=== PATIENT | female | born 1955 | race Caucasian/White ===

== ENCOUNTER 2021-03-26 21:39 | Inpatient (IN) | payer MEDICARE, BC ==
[~2021-03-26] VITALS: Ht 165.1 cm; Wt 53.5 kg
[2021-03-26] MEDS ORDERED: LORAZEPAM 2 MG/1 ML VIAL IM ONE (21:45)
[2021-03-26] MEDS ORDERED: LORAZEPAM 2 MG/1 ML VIAL ONE (21:56)
--- NOTE | 2021-03-26 22:00 | NUR ---
Pt bib [facility] ambulance for medical clearnace. Pt A/O x2, clear speech, no SOB or labored breathing. Afebrile. Educated on safety precautions, bed in lowest position. Dr. Garnica at bedside MSE in progress.
[2021-03-26 22:17] LABS: HEMATOCRIT 34.1 % (31.2-41.9); MEAN CORPUSCULAR HEMOGLOBIN 30.2 uug (24.7-32.8); PLATELET COUNT (AUTO) 258 K/uL (179-408)
[2021-03-26] MEDS ORDERED: CEFT1VIA14 IVP (22:18)
[2021-03-26] MEDS ORDERED: VANC750P15 IV (22:18)
[2021-03-26] MEDS ORDERED: BISA10SU12 RC (22:18)
[2021-03-26] MEDS ORDERED: HEPA500034 SUBCUT (22:18)
[2021-03-26] MEDS ORDERED: ACET-73 PO (22:18)
[2021-03-26] MEDS ORDERED: POLY17PO4 PO (22:18)
[2021-03-26] MEDS ORDERED: ASPI81TA31 PO (22:18)
[2021-03-26] MEDS ORDERED: SENN-18 PO (22:18)
[2021-03-26] MEDS ORDERED: LISI-657 PO (22:18)
[2021-03-26] MEDS ORDERED: MAGN400O6 PO (22:18)
[2021-03-26] MEDS ORDERED: AMLO-212 PO (22:18)
[2021-03-26] MEDS ORDERED: TRAM50TA2 PO (22:18)
[2021-03-26] MEDS ORDERED: ATOR80TA PO (22:18)
[2021-03-26] MEDS ORDERED: DOCU100C36 PO (22:18)
[2021-03-26] MEDS ORDERED: OLAN5TAB6 PO (22:18)
[2021-03-26] MEDS ORDERED: OXYC15TA46 PO (22:18)
[2021-03-26] MEDS ORDERED: HYDR-894 PO (22:18)
[2021-03-26 22:25] LABS: ETHANOL < 3 MG/DL (0-0)
[2021-03-26 22:28] LABS: CARBON DIOXIDE 28 mmol/L (21-32); CHLORIDE 102 mmol/L (98-107); GLUCOSE 110 mg/dL (74-106); POTASSIUM 4.6 mmol/L (3.5-5.1); UREA NITROGEN, BLOOD 20 mg/dL (7-18)
[2021-03-26] MEDS ORDERED: MELA3TAB41 PO (22:30)
[2021-03-26] MEDS ORDERED: TRAZ-182 PO (22:30)
[2021-03-26] MEDS ORDERED: DIPH25CA83 PO (22:30)
[2021-03-26] MEDS ORDERED: FAMO-132 PO (22:30)
[2021-03-26 22:33] LABS: ALANINE AMINOTRANSFERASE 17 U/L (14-59); ALKALINE PHOSPHATASE 86 U/L (50-136); ASPARTATE AMINOTRANSFERASE 16 U/L (15-37); BILIRUBIN,DIRECT 0.1 mg/dL (0.0-0.2); BILIRUBIN,TOTAL 0.4 mg/dL (0.2-1.0); THYROID STIMULATING HORMONE 2.879 mIU/mL (0.358-3.740); TOTAL PROTEIN, SERUM 6.5 g/dL (6.4-8.2)
--- NOTE | 2021-03-27 00:14 | NUR ---
Gave report to Cy roca
[2021-03-27] MEDS ORDERED: ACETAMINOPHEN 325 MG TABLET PO PRN (00:45)
[2021-03-27] MEDS ORDERED: MAG HYDROX/AL HYDROX/SIMETH 30 ML LIQUID UDC PO PRN (00:45)
--- NOTE | 2021-03-27 00:52 | NUR ---
Pt. admitted to MHU , under care of and Arnol Marion Dx: schizophrenia 5150 hold Belongs List completed
[2021-03-27 01:01] VITALS: BP 156/79
--- NOTE | 2021-03-27 01:45 | NUR ---
GPS: Admitted to unit earlier a 65 yr.old female under the care and supervision of /ÁLVARO Marion. Pt.is on a 72 hour hold for GD. Pt.is partially oriented,unable to say why she's in the hosp.right now. Anxious,disorganized,depressed and uncooperative during admission process. Refused a thorough skin assessment/body check from staff nurse when asked despite explanation of importance. Pt's rights handbook and advisement given to pt. Unit rules explained. Safe environment provided. Personal belongings list completed.Re-assured and re-directed. Denies wanting to hurt self. Will continue to monitor.
--- NOTE | 2021-03-27 05:46 | NUR ---
The [facility] production sanitizer Arnol Pearson was notified of this patients admission in order to reconcile their medications. No orders received and underwriter mortgage loan was told " It can be done in the morning ".
[2021-03-27] MEDS ORDERED: hydrALAZINE HCL 25 MG TABLET PO PRN (06:00)
[2021-03-27] MEDS ORDERED: FAMOTIDINE 20 MG TABLET PO PRN (06:00)
[2021-03-27 07:30] VITALS: BP 153/64
--- NOTE | 2021-03-27 07:30 | NUR ---
Received report from VINCENT Benoit. All questions, comments, and concerns were addressed. Received patient ambulating in the hallway, and standing at the nurses station.
[2021-03-27] MEDS: AMLODIPINE 5 MG TABLET PO SCH (08:11)
[2021-03-27] MEDS: ASPIRIN 81 MG TAB.CHEW PO SCH (08:11)
[2021-03-27] MEDS: LISINOPRIL 10 MG TABLET PO SCH (08:11)
--- NOTE | 2021-03-27 08:33 | NUR ---
Firearms Report: Maintenance Aide completed and submitted a [employer] firearms report for 5150 grave disability certification. A copy of report has been placed in patient chart.
[2021-03-27] MEDS ORDERED: OLANZAPINE 10 MG VIAL IM ONE (08:45)
--- NOTE | 2021-03-27 09:43 | NUR ---
WOUND CARE CONSULT: PT REFUSED TO ALLOW SKIN ASSESSMENT. PER NURSING REPORT AND PT HISTORY, PT HAS WOUND/CELLULITIS TO RT ANKLE AREA, PRESENT ON ADMISSION. PT ALSO REFUSED TO HAVE WOUND PHOTOS TAKEN PER RN. RECOMMEND DPM CONSULT. DR JOHNSON NOTIFIED OF CONSULT REQUEST. PT IS AMBULATORY. MD IN AGREEMENT WITH PLAN OF CARE.
[2021-03-27] MEDS: OLANZAPINE 2.5 MG TABLET PO SCH ×2 (10:00→17:00)
--- NOTE | 2021-03-27 10:25 | NUR ---
LEONELA Initial Discharge Plan: Patient currently resides at [address] [place] [address], [id number]. Patient will require alternate SNF placement upon discharge. SW will seek alternate SNF placement for the patient. SW will continue to work with patient, family, and MD to ensure a safe and proper discharge plan.
[2021-03-27] MEDS: DIVALPROEX SPRINKLE 125 MG CAP.SPRINK PO SCH ×2 (13:00→17:00)
--- NOTE | 2021-03-27 13:13 | NUR ---
Patient is alert and oriented. She is highly anxious, restless, needy, intrusive with staff, and has poor boundaries. Patient is noncomplicant with treatment plan, refusing scheduled PO medications and Addendum: 03/27/21 at 1318 by JOHANNA STOUT RN refusing for RN to assess wound on right lower extremity which was present upon admission. Patient denies SI/HI, denies AH/VH. Patient requires multiple attempts at redirection and reality orientation. She requires education about impulse control and how to communicate her needs appropriately to staff. Patient is able to ambulate independently and perform self care and ADL's. She is encouraged to participate in the unit therapeutic milieu.
--- NOTE | 2021-03-27 13:18 | NUR ---
Dr. Franklin consulted for wound on lower extremity. This lyric writer accompanied MD on assessment. Patient noted with redness on anterior and posterior lower extremity, a healing wound on the outer right portion of the leg. Wound is covered with Medihoney patch and mepilex dressing. This lyric writer will provide wound care as ordered by MD. Patient is continuing to refuse photo to be taken of leg. Patient provided with education about importance of wound management to prevent infection.
--- NOTE | 2021-03-27 14:29 | NUR ---
SW Collateral Contact: SW contacted patient's next of kin social media developer Shamika Coon ([phone]) to collected collateral information and left a voicemail for a return call.
--- NOTE | 2021-03-27 14:31 | NUR ---
LEONELA APS Contact: Per patient's records, LEONELA called APS credit reporter, Miles Lulú ([phone]) to collect collateral information. left a voicemail for a return call. Addendum: 03/27/21 at 1435 by KANG CISNEROS LEONELA received a call back from Miles who stated that the case is currently closed and recommended to make a new APS report.
--- NOTE | 2021-03-27 14:43 | NUR ---
LEONELA APS Report: LEONELA submitted an Adult Protective Services Report. Your report (Intake ID [id number]) was successfully submitted on 03/27/2021 at 2:43 PM. A copy of the report has been placed in the patient's chart.
[2021-03-27 16:00] VITALS: BP 114/63
--- NOTE | 2021-03-27 16:53 | NUR ---
Patient has been refusing all PO medication prescribed by psychiatrist. Patient states that she does not need medication, that she needs to be discharged to go back home, and has no insight into the reason for admission to the MHU. Patient provided with reality orientation multiple times. Patient provided with education about importance of medication adherence but she is refusing to participate in education and continues to ask to be discharged.
[2021-03-27] MEDS: CEphaleXIN 500 MG CAPSULE PO SCH (20:01)
[2021-03-27] MEDS: ATORVASTATIN 40 MG TABLET PO SCH (20:01)
[2021-03-27 20:11] VITALS: BP 122/54
[2021-03-28 07:30] VITALS: BP 142/61
[2021-03-28] MEDS: DIVALPROEX SPRINKLE 125 MG CAP.SPRINK PO SCH ×3 (09:00→16:54)
[2021-03-28] MEDS: OLANZAPINE 2.5 MG TABLET PO SCH ×2 (09:00→16:54)
[2021-03-28] MEDS: LISINOPRIL 10 MG TABLET PO SCH (09:00)
[2021-03-28] MEDS: AMLODIPINE 5 MG TABLET PO SCH (09:00)
[2021-03-28] MEDS: ASPIRIN 81 MG TAB.CHEW PO SCH (09:09)
[2021-03-28] MEDS: CEphaleXIN 500 MG CAPSULE PO SCH ×2 (09:10→22:02)
[2021-03-28] MEDS: THERAHONEY GEL 1.5 OZ TUBE TOP SCH (11:09)
[2021-03-28] MEDS: SODIUM HYPOCHLORITE 0.125% (QUARTER STRENGTH) 473 ML BOTTLE TP SCH (11:09)
--- NOTE | 2021-03-28 15:31 | NUR ---
SNF Referral: This SW sent Regi Patel from [facility] ([phone]) for placement option. This SW faxed patient's H & P, progress notes, and medication list.
--- NOTE | 2021-03-28 15:32 | NUR ---
Gps/Is Manager- Quiet, noted pacing around inside her room, offered prn med, claimed she is ok, does not need any medications. Encouraged to attend her group tx.
[2021-03-28 16:00] VITALS: BP 120/54
--- NOTE | 2021-03-28 16:26 | NUR ---
Gps/In Flight Refueling Craftsman- Pacing around this pm, anxious, r/t patient moved to another room , worried about sharing bathroom with few patients. Patient also verbalized worried abount the result of blood test that was drawn this am, informed pt. had A1C of 5.8 , (only blood test done this am ) offered to take anxiety pill refused.. Continue to monitor behavior
--- NOTE | 2021-03-28 16:32 | NUR ---
Gps/Receiving Operator- Intrusive, constantly needing redirections , constantly kept coming in to the Nurses station, demanding the need to have a toilet sit cover, , hesitant to share bathroom with other patient.. Continue to offere prn med. for anxiety remains to refused.
[2021-03-28 20:15] VITALS: BP 136/62
--- NOTE | 2021-03-28 20:30 | NUR ---
PATIENT IN BED ASLEEP BUT AROUSABLE. PATIENT KEPT TO HERSELF. PATIENT NON COMPLIANT WITH MEDICATIONS, TOOK ONLY KEFLEX ABX, TOOK LOTS OF ENCOURAGEMENT BEFORE TAKING HER MEDICATIONS, DENIES PAIN AT THIS TIME, CONT TO MONITOR.
[2021-03-28] MEDS: ATORVASTATIN 40 MG TABLET PO SCH (22:00)
--- NOTE | 2021-03-29 05:22 | NUR ---
PATIENT AWAKE KEEP COMING TO THE NURSING STATION, REFUSED TO SHARE HER TOILET TO OTHER PATIENT, PATIENT DOESNT HER ROOM, KEPT ASKING WHY THEY MOVED HER TO DIFFERENT ROOM. PATIENT UN REDIRECTABLE, INTRUSIVE, NEEDY. CONTINUE TO OFFER PO MEDICATIONS FOR ANXIETY BUT REFUSED. CONT TO MONITOR.
[2021-03-29 07:30] VITALS: BP 120/64
[2021-03-29] MEDS: AMLODIPINE 5 MG TABLET PO SCH (08:50)
[2021-03-29] MEDS: CEphaleXIN 500 MG CAPSULE PO SCH ×2 (08:50→20:59)
[2021-03-29] MEDS: DIVALPROEX SPRINKLE 125 MG CAP.SPRINK PO SCH ×3 (08:50→16:53)
[2021-03-29] MEDS: LISINOPRIL 10 MG TABLET PO SCH (08:50)
[2021-03-29] MEDS: ASPIRIN 81 MG TAB.CHEW PO SCH (08:50)
[2021-03-29] MEDS: OLANZAPINE 2.5 MG TABLET PO SCH ×2 (08:51→16:54)
--- NOTE | 2021-03-29 10:15 | NUR ---
Gps/Six Sigma Project Manager- Wound care to right ankle done as ordered, cleansed with dakins solution, pat dry, therahoney applied to open area, covered with mepilex(foam) , secured with paper tapes. .
--- NOTE | 2021-03-29 10:30 | NUR ---
Gps/Bookstore Manager -Patient extremely anxious, kept coming to the Nurses station, telling staff , she does not know what to do, figity, claimed she refused all medications because she can not drive, anymore, and no one will help her buy her medicines.Patient was reassured, and was informed will arranged help for her, encouraged and instructed to be compliant with her medications prescribed, bu patient does not appeared to understand kept asking for the same issues of discussion , educated but no understanding noted, perseverates.Constantly needing redirections. Dr Cui seen patient, orders received.
[2021-03-29] MEDS: THERAHONEY GEL 1.5 OZ TUBE TOP SCH (10:56)
[2021-03-29] MEDS: SODIUM HYPOCHLORITE 0.125% (QUARTER STRENGTH) 473 ML BOTTLE TP SCH (10:57)
[2021-03-29] MEDS ORDERED: OLANZAPINE 10 MG VIAL IM ONE (11:30)
--- NOTE | 2021-03-29 15:43 | NUR ---
Gps/Chemical Operator- Patient very intrusive, staff having difficulty redirecting patient , kept coming to nurses station , kept asking same questions, , verbalizing conerns about her discharge plan, does not want to be left in a messy situation per patient, reassured Social Workers will assist her finding better place when she's ready to be discharge.
[2021-03-29 17:41] VITALS: BP 147/71
[2021-03-29 20:10] VITALS: BP 101/59
[2021-03-29] MEDS: ATORVASTATIN 40 MG TABLET PO SCH (20:59)
--- NOTE | 2021-03-30 05:20 | NUR ---
PATIENT SLEPT MOST OF THE NIGHT, AMBULATE TO THE HALLWAYS, REFUSED TO TAKE SHOWER. PATIENT ARGUES WITH STAFF WHEN ASKED TO TAKE SHOWERS, TELL ALL KIND OF REASON. PATIENT STILL HAS EPISODE OF ANXIETY WORRIES ABOUT MONEY, AND PLACE TO STAY, RE ORIENT PATIENT BUT NO EFFECTIVE, CONT TO MONITOR.
[2021-03-30 08:08] VITALS: BP 107/71
[2021-03-30] MEDS: OLANZAPINE 2.5 MG TABLET PO SCH ×3 (09:00→16:45)
[2021-03-30] MEDS: AMLODIPINE 5 MG TABLET PO SCH (09:00)
[2021-03-30] MEDS: LISINOPRIL 10 MG TABLET PO SCH (09:00)
[2021-03-30] MEDS: DIVALPROEX SPRINKLE 125 MG CAP.SPRINK PO SCH ×3 (09:00→16:44)
[2021-03-30] MEDS: THERAHONEY GEL 1.5 OZ TUBE TOP SCH (09:27)
[2021-03-30] MEDS: SODIUM HYPOCHLORITE 0.125% (QUARTER STRENGTH) 473 ML BOTTLE TP SCH (09:27)
[2021-03-30] MEDS: ASPIRIN 81 MG TAB.CHEW PO SCH (09:28)
[2021-03-30] MEDS: CEphaleXIN 500 MG CAPSULE PO SCH ×2 (09:28→20:13)
[2021-03-30 16:59] VITALS: BP 104/65
[2021-03-30] MEDS: LORAZEPAM 1 MG TABLET PO PRN (20:13)
[2021-03-30] MEDS: ATORVASTATIN 40 MG TABLET PO SCH (20:13)
[2021-03-30 21:45] VITALS: BP 145/55
[2021-03-31] MEDS: MAGNESIUM HYDROXIDE 30 ML LIQUID UDC PO PRN (04:01)
--- NOTE | 2021-03-31 04:40 | NUR ---
Started the shirt with this patient literally following this advertising copy writer around, even when the advertising copy writer was in the bathroom. The patient does not have any rearguards for spacial awareness and social distancing. Multiple attempts to distract and redirect the patient were tried to no avail. The patient is very anxious and fixates on possible problems that might happen when discharged. This patient is unable to engage in any meaningful conversation because the patient only speaks and does not listen, making it a one way conversation at best. Another note is that the patient mostly refuses to take her medications and when she does it is met with reluctancy, making the administration of the medication a long and dragged out procedure. This advertising copy writer will continue to educate and encourage medication compliance when possible. Promote active listening and provide a safe environment as needed.
[2021-03-31 07:30] VITALS: BP 154/77
[2021-03-31] MEDS: LISINOPRIL 10 MG TABLET PO SCH (09:00)
[2021-03-31] MEDS: DIVALPROEX SPRINKLE 125 MG CAP.SPRINK PO SCH ×3 (09:00→17:00)
[2021-03-31] MEDS: ASPIRIN 81 MG TAB.CHEW PO SCH (09:45)
[2021-03-31] MEDS: OLANZAPINE 2.5 MG TABLET PO SCH ×2 (09:45→17:00)
[2021-03-31] MEDS: AMLODIPINE 5 MG TABLET PO SCH (09:46)
[2021-03-31] MEDS: CEphaleXIN 500 MG CAPSULE PO SCH ×2 (09:47→20:52)
[2021-03-31] MEDS: SODIUM HYPOCHLORITE 0.125% (QUARTER STRENGTH) 473 ML BOTTLE TP SCH (09:47)
[2021-03-31] MEDS: THERAHONEY GEL 1.5 OZ TUBE TOP SCH (09:50)
--- NOTE | 2021-03-31 16:15 | NUR ---
Gps/College Associate- Patient she talked to her Landlord, and she is very worried , she does not not have a place to live when she gets out of here, patient was reassured, SW. will assist here in this issue when she is ready ti be discharge.
[2021-03-31] MEDS: ATORVASTATIN 40 MG TABLET PO SCH (20:52)
--- NOTE | 2021-04-01 01:38 | NUR ---
Patients behavior is the same as the previous night. Still following this grant writer around the unit, asking the same questions. This patient is adamantly refusing to take any medications at this time, including antibiotics. This grant writer has been an active listener of the patients worries and anxieties , offering reassurance, as well as providing education to the patient on coping skills. The patient is nonresponsive to redirection, and will not engage in any reasonable conversation. Plan is to keep patient safe and continue to encourage compliance when needed.
--- NOTE | 2021-04-01 06:01 | NUR ---
Additional note, the patient has also been refusing to shower and refusing her VS to be taken. Total sleep hours last night were 4.30
[2021-04-01] MEDS: OLANZAPINE 2.5 MG TABLET PO SCH ×2 (09:00→17:00)
[2021-04-01] MEDS: CEphaleXIN 500 MG CAPSULE PO SCH ×2 (09:00→20:02)
[2021-04-01] MEDS: ASPIRIN 81 MG TAB.CHEW PO SCH (09:00)
[2021-04-01] MEDS: LISINOPRIL 10 MG TABLET PO SCH (09:00)
[2021-04-01] MEDS: AMLODIPINE 5 MG TABLET PO SCH (09:00)
[2021-04-01] MEDS: THERAHONEY GEL 1.5 OZ TUBE TOP SCH (09:00)
[2021-04-01] MEDS: DIVALPROEX SPRINKLE 125 MG CAP.SPRINK PO SCH ×3 (09:00→17:00)
[2021-04-01] MEDS: SODIUM HYPOCHLORITE 0.125% (QUARTER STRENGTH) 473 ML BOTTLE TP SCH (09:00)
--- NOTE | 2021-04-01 10:00 | NUR ---
PATIENT CONTINUES TO REFUSE MEDICATIONS STATED DID NOT NEED THEM AND THE DOCTOR WHO ORDERED IT DID NOT KNOW HER AND DID NOT KNOW WHAT SHE NEEDED ALL ATTEMPTS TO CONVINCE HER TO TAKE HER MEDICATIONS HAS FAILED AT THIS TIME WILL CONTINUE TO OBSERVE AND PROVIDE SAFE AND THERAPEUTIC ENVIRONMENT AT ALL TIMES.
[2021-04-01 15:14] VITALS: BP 148/70
--- NOTE | 2021-04-01 15:18 | NUR ---
LEONELA Individual Therapy: shoe worker met with patient for brief counseling to help address patient's presenting problem neglecting self-care. Patient appears labile and manic. Patient not understanding of her mental status. Patient is paranoid and delusional stating that "the staff brought her here at the hospital". SW attempted to educate pt multiple times and pt is not understanding. SW unable to conduct therapy at this time.
[2021-04-01] MEDS: ENSURE ENLIVE (VAN) 240 ML LIQUID PO SCH (17:02)
--- NOTE | 2021-04-01 17:03 | NUR ---
PATIENT CONTINUES TO REFUSE MEDICATIONS HAS POOR INSIGHT STATED THAT SHE DOES NOT NEED ANY MEDICATIONS STATED THAT SHE IS UNABLE TO TAKE CARE OF HERSELF BECAUSE SHE IS UNABLE TO BUT SHE IS WALKING AROUND UP AND DOWN NON STOP VERY INTRUSIVE AND PARANOID NEEDS TO BE REDIRECTED SO MANY TIMES NOT TO ORACLE SOFTWARE ENGINEER THE DOOR WAY TO EITHER GO TO HER ROOM OR TO THE D/ROOM AND PARTICIPATE IN ACTIVITIES STATED THAT SHE IS NOT INTERESTED IN DOING ANYTHING AT THIS TIME.
[2021-04-01] MEDS: ATORVASTATIN 40 MG TABLET PO SCH (20:02)
--- NOTE | 2021-04-02 04:36 | NUR ---
1930 ASSUMED CARE OF PATIENT. VITAL SIGNS STABLE. PATIENT PACING HALLS. PATIENT REFUSED VITALS, MEDICATION, AND DRESSING CHANGE. PATIENT STATES "I DON'T KNOW WHY THEY MOVED ME FROM PLACE TO PLACE. I DON'T KNOW WHAT YOU ARE TRYING TO GIVE ME I WON'T TAKE ANYTHING FROM YOU" 2200 PATIENT PACING HALLS ASKING FOR RANDOM THINGS. PATIENT DISPLAYING PARANOID DELUSIONS. 0430 PATIENT IN BED SLEEPING MOST OF NIGHT. WILL CONTINUE TO MONITOR THROUGHOUT SHIFT.
[2021-04-02 07:30] VITALS: BP 123/84
[2021-04-02] MEDS: DIVALPROEX SPRINKLE 125 MG CAP.SPRINK PO SCH ×2 (08:15→08:26)
[2021-04-02] MEDS: LISINOPRIL 10 MG TABLET PO SCH ×2 (08:15→08:23)
[2021-04-02] MEDS: ASPIRIN 81 MG TAB.CHEW PO SCH (08:15)
[2021-04-02] MEDS: CEphaleXIN 500 MG CAPSULE PO SCH (08:15)
[2021-04-02] MEDS: OLANZAPINE 2.5 MG TABLET PO SCH ×3 (08:15→16:14)
[2021-04-02] MEDS: AMLODIPINE 5 MG TABLET PO SCH ×2 (08:15→08:22)
[2021-04-02] MEDS: ENSURE ENLIVE (VAN) 240 ML LIQUID PO SCH ×2 (08:15→16:14)
[2021-04-02] MEDS: THERAHONEY GEL 1.5 OZ TUBE TOP SCH (08:16)
[2021-04-02] MEDS: SODIUM HYPOCHLORITE 0.125% (QUARTER STRENGTH) 473 ML BOTTLE TP SCH (08:17)
--- NOTE | 2021-04-02 08:49 | NUR ---
education material regarding depakote and zyprexa given per patients request. Pt wanted to know side effects of medications and its indications. Dr Cui spoke with patient to reinforce and educate pt re following meds.
[2021-04-02] MEDS: FAMOTIDINE 20 MG TABLET PO SCH ×2 (10:45→12:39)
[2021-04-02 15:12] VITALS: BP 115/55
--- NOTE | 2021-04-02 18:30 | NUR ---
PT took her zyprexa x 2 today. Pt very argumentative and confrontive. Pt fixated on side effects of zyprexa referred pt to education material given earlier for its side effects.
[2021-04-02] MEDS: ATORVASTATIN 40 MG TABLET PO SCH (20:35)
[2021-04-02] MEDS: SULFAMETH/TRIMETH 800/160 MG TABLET PO SCH (20:35)
[2021-04-02 20:47] VITALS: BP 155/53
--- NOTE | 2021-04-03 06:21 | NUR ---
Patient slept well about 7 hrs.Continue on ATB therapy for cellulitis,no a/r noted. Cooperative at this time. Noted with dressing intact clean and dry on right heel.
[2021-04-03 07:30] VITALS: BP 147/66
[2021-04-03] MEDS: SODIUM HYPOCHLORITE 0.125% (QUARTER STRENGTH) 473 ML BOTTLE TP SCH (09:00)
[2021-04-03] MEDS: AMLODIPINE 5 MG TABLET PO SCH ×2 (09:00→09:07)
[2021-04-03] MEDS: ASPIRIN 81 MG TAB.CHEW PO SCH ×2 (09:00→09:07)
[2021-04-03] MEDS: THERAHONEY GEL 1.5 OZ TUBE TOP SCH (09:00)
[2021-04-03] MEDS ORDERED: OLANZAPINE 2.5 MG TABLET PO SCH (09:00)
[2021-04-03] MEDS: ENSURE ENLIVE (VAN) 240 ML LIQUID PO SCH ×2 (09:00→16:23)
[2021-04-03] MEDS: SULFAMETH/TRIMETH 800/160 MG TABLET PO SCH ×3 (09:00→20:33)
[2021-04-03] MEDS: OLANZAPINE 5 MG TABLET PO SCH ×3 (09:00→20:33)
[2021-04-03] MEDS: FAMOTIDINE 20 MG TABLET PO SCH (09:07)
[2021-04-03] MEDS ORDERED: OLANZAPINE 10 MG VIAL IM PRN (09:30)
--- NOTE | 2021-04-03 14:50 | NUR ---
LEONELA Individual Therapy: tray line worker met with patient for brief counseling to help address patient's presenting problem neglecting self-care. Patient appears manic and is pacing the hallway. Patient is focused on discharge. Patient is paranoid and delusional stating "I am in danger". LEONELA unable to conduct therapy at this time.
--- NOTE | 2021-04-03 16:03 | NUR ---
STILL REFUSED ALL AM MEDICATION,ZYPREXA IM GIVEN ORDERED AND UNCOOPERATIVE WITH MEDICATIONS AND CARE AT THIS TIME. WOUND CARE DONE TO ANKLE.
--- NOTE | 2021-04-03 16:23 | NUR ---
SW Collateral Contact: SW contacted patient's next of kin social service director Shamika Coon ([phone]) who stated she is a "friend and a community care person and works at [employer]". This SW stated that pt is constantly calling her and stating that pt should be discharged home. This SW explained pt's discharge plan and treatment plan.
[2021-04-03 20:12] VITALS: BP 131/50
[2021-04-03] MEDS: ATORVASTATIN 40 MG TABLET PO SCH (20:33)
--- NOTE | 2021-04-04 06:16 | NUR ---
Pt slept a total of 7 hours. Very restless and claiming that she needs to go home. Pt is very worried about when she will be leaving and is not able to be redirected. Pt is on Riese, but took PO Zyprexa last night, tolerated well. Denies pain or SOB at this time. Denies SI or HI. Safety and comfort provided throughout shift. No other issues or concerns at this time, will endorse to day shift.
[2021-04-04 07:30] VITALS: BP 136/64
[2021-04-04] MEDS: FAMOTIDINE 20 MG TABLET PO SCH (09:00)
[2021-04-04] MEDS: ENSURE ENLIVE (VAN) 240 ML LIQUID PO SCH ×2 (09:00→17:00)
[2021-04-04] MEDS: ASPIRIN 81 MG TAB.CHEW PO SCH (09:00)
[2021-04-04] MEDS ORDERED: OLANZAPINE 5 MG TABLET PO SCH (09:00)
[2021-04-04] MEDS: AMLODIPINE 5 MG TABLET PO SCH (09:00)
[2021-04-04] MEDS: SULFAMETH/TRIMETH 800/160 MG TABLET PO SCH ×2 (09:05→20:52)
[2021-04-04] MEDS: SODIUM HYPOCHLORITE 0.125% (QUARTER STRENGTH) 473 ML BOTTLE TP SCH (10:10)
[2021-04-04] MEDS: THERAHONEY GEL 1.5 OZ TUBE TOP SCH (10:10)
--- NOTE | 2021-04-04 10:20 | NUR ---
Gps/Child Care Specialist- Pacing back and forth the hallway, perseverating on the same situation and complaints ," i dont have anyone to help me,, no body understand here " . Reinforced plan of care, reviewed with patient , not following directions. Hangs out by the Nurses station , constantly redirected to attend her group therapy, or go to her room , stay away from the Nurses station. Selective with her routine meds, reviewed and educ.. Not compliant , gets tricky , found a pill on her table, when asked where it came from claimed she does not know. Will continue to monitor behavior, claimed she does not needs any medications.
[2021-04-04] MEDS: ATORVASTATIN 40 MG TABLET PO SCH (20:52)
[2021-04-04] MEDS ORDERED: OLANZAPINE 2.5 MG TABLET PO SCH (21:00)
[2021-04-04] MEDS: TEMAZEPAM 7.5 MG CAPSULE PO PRN (22:30)
--- NOTE | 2021-04-05 06:22 | NUR ---
Pt rested well; took PO meds; safety maintained; continue to monitor; continue plan of care Addendum: 04/05/21 at 0623 by TYE HINES RN pt slept 6 hours
[2021-04-05 08:39] VITALS: BP 141/88
[2021-04-05] MEDS ORDERED: OLANZAPINE 10 MG VIAL IM PRN (08:45)
[2021-04-05] MEDS: AMLODIPINE 5 MG TABLET PO SCH (09:00)
[2021-04-05] MEDS: ASPIRIN 81 MG TAB.CHEW PO SCH (09:00)
[2021-04-05] MEDS: ENSURE ENLIVE (VAN) 240 ML LIQUID PO SCH ×2 (09:00→16:57)
[2021-04-05] MEDS: BENZTROPINE MESYLATE 0.5 MG TABLET PO SCH ×2 (09:00→20:59)
[2021-04-05] MEDS: risperiDONE 1 MG/ML UDC PO SCH ×2 (09:13→20:41)
[2021-04-05] MEDS: FAMOTIDINE 20 MG TABLET PO SCH (09:15)
[2021-04-05] MEDS: SULFAMETH/TRIMETH 800/160 MG TABLET PO SCH ×2 (09:15→20:41)
[2021-04-05] MEDS: THERAHONEY GEL 1.5 OZ TUBE TOP SCH (09:16)
[2021-04-05] MEDS: SODIUM HYPOCHLORITE 0.125% (QUARTER STRENGTH) 473 ML BOTTLE TP SCH (09:16)
--- NOTE | 2021-04-05 09:38 | NUR ---
LEONELA Avionics Technician Contact: This SW contacted Shamika ([phone]) who stated that pt does not receive 24 hour care. She stated she can arrange for developer evangelist and food delivery. She reported when pt was at home she would refuse to take her medications and was refusing the care at home. Shamika stated that her and the landlord help pt. Shamika shared pt's landlord number ([phone]) Mr. Higgins.
--- NOTE | 2021-04-05 09:41 | NUR ---
Landlord Contact: This SW contacted patient's landlord Mr. Higgins ([phone]) and left a voicemail to discuss pt's living condition.
--- NOTE | 2021-04-05 09:46 | NUR ---
Gps/Janitor Helper- Extremely anxious, pacing in her room, reviewed medications, patient claimed she does not need any medications, informed and explained she's reise , claimed she does not care. Kept emphasizing she needs to go back to her place or else her Landlord will initiate eviction and no place to stay. Patient kepr repeating her concerns, but patient does not listen to explanations. Refused to take routine am meds, after she agreed will take her pills, when offered, claimed she'll take later, keeping pills in her hand, meds. was taken away from her. Patient extremely anxious, difficulty redirecting .Continue to monitor behavior
--- NOTE | 2021-04-05 13:04 | NUR ---
SW Property Head Lineman: This SW contacted patient's property owner/operator and spoke with Mr. Higgins ([phone]) and who stated that patient has been living there for 50 years. They stated they wouldn't evict pt and wouldn't want too but stated "in the long run they might". reported that patient is a hoarder, the apartment has molds, bugs, food, and is neglecting care at home. She reported patient has been reporting any sort of help. Owners stated patient will need a nursing facility.
[2021-04-05 20:11] VITALS: BP 127/42
[2021-04-05] MEDS: ATORVASTATIN 40 MG TABLET PO SCH (20:59)
--- NOTE | 2021-04-06 05:17 | NUR ---
Pt awake at this time, pacing in the hallway and rambling at the staff about her medications "not letting her think" and causing her to "lose her place" after being discharged from the hospital. Redirected repeatedly but refused to listen. Pt also selectively compliant with her meds. Safety precautions in place, q15min checks done to ensure safety.
[2021-04-06 07:53] VITALS: BP 130/60
[2021-04-06] MEDS: BENZTROPINE MESYLATE 0.5 MG TABLET PO SCH ×2 (09:00→21:00)
[2021-04-06] MEDS: THERAHONEY GEL 1.5 OZ TUBE TOP SCH (09:00)
[2021-04-06] MEDS: FAMOTIDINE 20 MG TABLET PO SCH (09:00)
[2021-04-06] MEDS: AMLODIPINE 5 MG TABLET PO SCH (09:00)
[2021-04-06] MEDS: SODIUM HYPOCHLORITE 0.125% (QUARTER STRENGTH) 473 ML BOTTLE TP SCH ×2 (09:00→18:12)
[2021-04-06] MEDS: ASPIRIN 81 MG TAB.CHEW PO SCH (09:00)
[2021-04-06] MEDS: ENSURE ENLIVE (VAN) 240 ML LIQUID PO SCH ×2 (09:00→16:44)
[2021-04-06] MEDS: SULFAMETH/TRIMETH 800/160 MG TABLET PO SCH ×2 (09:08→21:00)
[2021-04-06] MEDS: risperiDONE 1 MG/ML UDC PO SCH (09:08)
[2021-04-06 16:44] VITALS: BP 142/58
[2021-04-06 19:47] VITALS: BP 154/57
[2021-04-06] MEDS: ATORVASTATIN 40 MG TABLET PO SCH (21:00)
[2021-04-06] MEDS: risperiDONE 2 MG TABLET PO SCH (21:00)
[2021-04-06] MEDS: OLANZAPINE 10 MG VIAL IM PRN (21:59)
--- NOTE | 2021-04-07 05:17 | NUR ---
Received Pt in her room lying down in bed awake. Pt was emotional and anxious on approach. Pt perseverated about hoe she has "nothing. no home, no car, no income, I can't take care of myself. I'm getting evicted". This technical proposal writer spent more than an hour in her room providing emotional support, attempting to provide positive coping mechanisms, and giving her resources for Solid Die Cutter and Case Management. Pt is extremely resistant to any assistance offered to her and instead repeats over and over that "no one will help me". Pt is uncooperative with staff direction, with self care, has no plan for self care or safety, and is reluctant to help herself. Pt minimizes her responsibility for admission, denies what was written on the Hold, and states "no one cares about me". Pt was gamey and manipulative with regards to her medications, initially stated she would take them, then stated, "maybe in 30 minutes, I need to think about it". When re-approached, "I'm not sure, I think think I need it. I need to think clearly." Pt was reminded that if she refused her Risperdal, there is a court order in place to give an injection. Pt replied that she wanted "neither". Injection of Zyprexa 5mg IM administered as ordered to (R) gluteal muscle without incident. Pt was calmer, but remained paranoid, histrionic, anxious, with fixed persecutory delusions. Denies SI, able to verbally contract for safety. VS stable, denies pain.
[2021-04-07 07:30] VITALS: BP 160/67
[2021-04-07] MEDS: risperiDONE 1 MG/ML UDC PO SCH ×2 (07:52→13:00)
[2021-04-07] MEDS: OLANZAPINE 10 MG VIAL IM PRN ×3 (08:10→20:18)
[2021-04-07] MEDS: ASPIRIN 81 MG TAB.CHEW PO SCH (08:10)
[2021-04-07] MEDS: SULFAMETH/TRIMETH 800/160 MG TABLET PO SCH ×3 (08:10→20:16)
[2021-04-07] MEDS: BENZTROPINE MESYLATE 0.5 MG TABLET PO SCH ×2 (08:10→20:16)
[2021-04-07] MEDS: ENSURE ENLIVE (VAN) 240 ML LIQUID PO SCH ×2 (08:10→16:22)
[2021-04-07] MEDS: SODIUM HYPOCHLORITE 0.125% (QUARTER STRENGTH) 473 ML BOTTLE TP SCH ×2 (08:11→18:37)
[2021-04-07] MEDS: FAMOTIDINE 20 MG TABLET PO SCH (08:11)
[2021-04-07] MEDS: THERAHONEY GEL 1.5 OZ TUBE TOP SCH ×2 (08:11→18:37)
[2021-04-07] MEDS: AMLODIPINE 5 MG TABLET PO SCH (08:11)
[2021-04-07 15:14] VITALS: BP 158/58
--- NOTE | 2021-04-07 16:47 | NUR ---
GPS: Nursing Notes: Noncompliance with Medication: Patient is awake and responding to her name, impaired judgment, resistant with nursing care, pacing constantly near the nursing station, constantly listening to staff conversation, redirected and reoriented during shift, but she gets easily irritable, argumentative, believes that staff is overdosing her when she is getting the IM medication per Riese order, patient is cheeking her Risperdal and then spitting on the floor, constantly making excuses for not taking the Risperdal PO, refusing to participate in therapeutic groups, stated "The medication is going to make me forget about my situation... I don't want to loose my house...", reoriented to reality, but continue asking the same question, believes that she does not belong here, continue to monitor for safety, continue with treatment plan.
[2021-04-07 20:05] VITALS: BP 154/62
[2021-04-07] MEDS: ATORVASTATIN 40 MG TABLET PO SCH (20:16)
[2021-04-07] MEDS: risperiDONE 2 MG TABLET PO SCH (20:16)
[2021-04-07] MEDS: MAGNESIUM HYDROXIDE 30 ML LIQUID UDC PO PRN (21:43)
--- NOTE | 2021-04-08 06:51 | NUR ---
Pt refused all of her PO medications. Charge Nurse approached Pt first and asked if she was going to take her medications, Pt replied "no, you have already given me too much, you're overmedicating me!" When approached by this check writer salesperson and offered her medications, Pt yelled, "you're overdosing me!" repeatedly. Pt refused to follow staff direction, and uncooperative with care. Zyprexa 5mg administered IM per Riese order. Medication minimally effective, Pt remained perseverative, argumentative, disruptive, and angry. VS stable, denied pain.
[2021-04-08 07:30] VITALS: BP 154/70
[2021-04-08] MEDS: BENZTROPINE MESYLATE 0.5 MG TABLET PO SCH ×2 (09:00→20:25)
[2021-04-08] MEDS: ASPIRIN 81 MG TAB.CHEW PO SCH (09:00)
[2021-04-08] MEDS: AMLODIPINE 5 MG TABLET PO SCH (09:00)
[2021-04-08] MEDS: FAMOTIDINE 20 MG TABLET PO SCH (09:00)
[2021-04-08] MEDS: risperiDONE 1 MG/ML UDC PO SCH (09:12)
[2021-04-08] MEDS: ENSURE ENLIVE (VAN) 240 ML LIQUID PO SCH ×2 (09:12→16:53)
[2021-04-08] MEDS: SULFAMETH/TRIMETH 800/160 MG TABLET PO SCH ×2 (10:39→20:26)
[2021-04-08] MEDS: THERAHONEY GEL 1.5 OZ TUBE TOP SCH (10:40)
[2021-04-08] MEDS: SODIUM HYPOCHLORITE 0.125% (QUARTER STRENGTH) 473 ML BOTTLE TP SCH (10:40)
[2021-04-08] MEDS ORDERED: INVEGA SUSTENNA 156 MG IM ONE (11:00)
[2021-04-08] MEDS: ATORVASTATIN 40 MG TABLET PO SCH (20:26)
--- NOTE | 2021-04-09 06:15 | NUR ---
GPS: Pt.slept 7 hrs.last night. Remains anxious,argumentative and paranoid. Continues to claim that she's been overmedicated here. Refuses to listen to re-direction and health teachings from staff. Safe environment provided. Will continue to monitor.
[2021-04-09 07:30] VITALS: BP 96/75
[2021-04-09] MEDS: FAMOTIDINE 20 MG TABLET PO SCH (09:00)
[2021-04-09] MEDS: AMLODIPINE 5 MG TABLET PO SCH (09:00)
[2021-04-09] MEDS: BENZTROPINE MESYLATE 0.5 MG TABLET PO SCH ×2 (09:00→20:03)
[2021-04-09] MEDS: busPIRone 5 MG TABLET PO SCH ×3 (09:30→16:13)
[2021-04-09] MEDS ORDERED: OLANZAPINE 10 MG VIAL IM PRN (09:45)
[2021-04-09] MEDS ORDERED: risperiDONE 0.5 MG TABLET PO SCH (09:45)
--- NOTE | 2021-04-09 09:45 | NUR ---
Pt refused EKG, sts cancelled.. in unit, sts not cancelled.. spk with pt in room, pt refused..
[2021-04-09] MEDS: ASPIRIN 81 MG TAB.CHEW PO SCH (10:10)
[2021-04-09] MEDS: SULFAMETH/TRIMETH 800/160 MG TABLET PO SCH ×2 (10:10→20:03)
[2021-04-09] MEDS: ENSURE ENLIVE (VAN) 240 ML LIQUID PO SCH ×2 (10:11→16:13)
[2021-04-09] MEDS: THERAHONEY GEL 1.5 OZ TUBE TOP SCH (10:14)
[2021-04-09] MEDS: SODIUM HYPOCHLORITE 0.125% (QUARTER STRENGTH) 473 ML BOTTLE TP SCH (10:15)
[2021-04-09] MEDS: risperiDONE 1 MG TABLET PO SCH ×2 (10:29→20:03)
--- NOTE | 2021-04-09 10:39 | NUR ---
SW Individual Therapy: printing table worker met with patient for brief counseling to help address patient's presenting problem neglecting self-care. Patient appears labile. Patient is hyperverbal and tangential. Patient is not understanding of her mental illness. Patient is fixated on discharge. This SW has educated pt on her discharge plan multiple times. This SW stated that her house is not a living condition and she was neglecting her care at home. This SW stated that APS is involved in her case. This SW attempted to comfort pt and pt is not understanding.
[2021-04-09 15:18] VITALS: BP 135/69
[2021-04-09] MEDS: MAGNESIUM HYDROXIDE 30 ML LIQUID UDC PO PRN (16:12)
[2021-04-09 20:04] VITALS: BP 140/90
[2021-04-09] MEDS: ATORVASTATIN 40 MG TABLET PO SCH (20:04)
[2021-04-10 07:22] LABS: HEMATOCRIT 36.1 % (31.2-41.9); MEAN CORPUSCULAR VOLUME 92.1 fL (75.5-95.3); PLATELET COUNT (AUTO) 278 K/uL (179-408)
[2021-04-10 07:28] LABS: MAGNESIUM 2.5 mg/dL (1.8-2.4); PHOSPHOROUS 3.8 mg/dL (2.5-4.9); POTASSIUM 5.1 mmol/L (3.5-5.1)
[2021-04-10 07:30] VITALS: BP 140/65
--- NOTE | 2021-04-10 08:30 | NUR ---
AWAKE ALERT BUT NOT IN TOUCH WITH REALITY MUCH DIFFICULTY GIVING PATIENT HER MEDICATIONS ORDERED BECAUSE SHE STATED THAT THESE MEDICATIONS ARE NOT FOR HER AND THAT THE MEDICATIONS HAS TAKEN AWAY HER THOUGHTS AND SHE HAS NO FAMILY NO WHERE TO GO AND FEELS HOPELESS REASSURED HER THAT THE CHILD AND YOUTH PROGRAM ASSISTANT WILL ARRANGE A SAFE DISCHARGE FOR HER WHEN SHE IS READY TO BE DISCHARGED.
[2021-04-10] MEDS: ASPIRIN 81 MG TAB.CHEW PO SCH (08:46)
[2021-04-10] MEDS: risperiDONE 1 MG TABLET PO SCH ×2 (08:47→20:10)
[2021-04-10] MEDS: BENZTROPINE MESYLATE 0.5 MG TABLET PO SCH ×2 (08:47→20:09)
[2021-04-10] MEDS: FAMOTIDINE 20 MG TABLET PO SCH (08:47)
[2021-04-10] MEDS: SULFAMETH/TRIMETH 800/160 MG TABLET PO SCH ×2 (08:47→20:09)
[2021-04-10] MEDS: busPIRone 5 MG TABLET PO SCH ×3 (08:47→16:27)
[2021-04-10] MEDS: AMLODIPINE 5 MG TABLET PO SCH (08:48)
[2021-04-10] MEDS: ENSURE ENLIVE (VAN) 240 ML LIQUID PO SCH ×2 (09:10→16:30)
[2021-04-10] MEDS: SODIUM HYPOCHLORITE 0.125% (QUARTER STRENGTH) 473 ML BOTTLE TP SCH (09:11)
[2021-04-10] MEDS: THERAHONEY GEL 1.5 OZ TUBE TOP SCH (09:11)
--- NOTE | 2021-04-10 12:32 | NUR ---
LEONELA [facility] Adult Protective Services: This SW contacted main number to confirm if pt has a assigned case packer. Administrative Assistant Front Desk Jak stated pt's case is open with case packer Cornelia Cruz ([phone]). This SW contacted Cornelia and left a detailed voicemail.
--- NOTE | 2021-04-10 14:06 | NUR ---
SW Note: Patient on the phone with Monie ([phone]) and secretly having her on the phone while [place] hears staffs conversation. Patient is violating privacy and confidentiality. This SW notified Dr. Cui and Eleanor Jacques, ERIKA.
[2021-04-10 16:00] VITALS: BP 150/50
--- NOTE | 2021-04-10 18:05 | NUR ---
CONTINUES TO FEEL THAT SHE HAS NO ONE AND NO WHERE TO GO CONTINUES TO REASSURE HER THAT THE PROTECTIVE SIGNAL SUPERINTENDENT SAFELY DISCHARGE HER WHEN SHE IS READY.
[2021-04-10] MEDS: ATORVASTATIN 40 MG TABLET PO SCH (20:10)
[2021-04-10 20:17] VITALS: BP 112/50
[2021-04-11 07:30] VITALS: BP 118/51
[2021-04-11] MEDS: AMLODIPINE 5 MG TABLET PO SCH (09:00)
[2021-04-11] MEDS: FAMOTIDINE 20 MG TABLET PO SCH (09:00)
[2021-04-11] MEDS: ENSURE ENLIVE (VAN) 240 ML LIQUID PO SCH ×2 (09:00→17:00)
[2021-04-11] MEDS: risperiDONE 1 MG TABLET PO SCH ×2 (09:27→20:45)
[2021-04-11] MEDS: busPIRone 5 MG TABLET PO SCH ×3 (09:27→17:00)
[2021-04-11] MEDS: BENZTROPINE MESYLATE 0.5 MG TABLET PO SCH ×2 (09:27→20:45)
[2021-04-11] MEDS: ASPIRIN 81 MG TAB.CHEW PO SCH (09:27)
[2021-04-11] MEDS: SULFAMETH/TRIMETH 800/160 MG TABLET PO SCH ×2 (09:28→20:45)
[2021-04-11] MEDS: MAGNESIUM HYDROXIDE 30 ML LIQUID UDC PO PRN (11:51)
[2021-04-11] MEDS: SODIUM HYPOCHLORITE 0.125% (QUARTER STRENGTH) 473 ML BOTTLE TP SCH (11:53)
[2021-04-11] MEDS: THERAHONEY GEL 1.5 OZ TUBE TOP SCH (11:53)
[2021-04-11 16:00] VITALS: BP 135/63
[2021-04-11 20:10] VITALS: BP 151/48
[2021-04-11] MEDS: MEMANTINE HCL 5 MG TABLET PO SCH (20:45)
[2021-04-11] MEDS: ATORVASTATIN 40 MG TABLET PO SCH (21:00)
[2021-04-11] MEDS: TEMAZEPAM 7.5 MG CAPSULE PO PRN (22:11)
--- NOTE | 2021-04-12 02:06 | NUR ---
GPS: Transferred patient to med surg floor ROOM 316 via w/c. patient is alert and oriented x3,ambulatory. no c/o pain or discomfort at this time. v/s wnl. patient is self care. on 14 day hold for GD. Due to unable to care her self. patient refused home health care at home. report given to abdi CARRERO.
--- NOTE | 2021-04-12 02:15 | NUR ---
recd pt from mhu, alert and oriented,needs a lot of prompting and encouragement, active listening providedrested fairly well. 0n 1;1 sitter secondary to 14 day hold.refused to have anybody checked her body, gets easily agitated.
[2021-04-12 04:00] VITALS: BP_SYST 152; BP_SYST 173; BP_DIAS 64; BP_DIAS 70
--- NOTE | 2021-04-12 06:06 | NUR ---
BP AT THIS TIME 173/70, FACE FLUSHED, NO C/O OF HEADACHE, MEDICATED WITH APRESOLINE 25 MG ORDERED, WILL CONTINUE TO MONITOR.
--- NOTE | 2021-04-12 06:17 | NUR ---
PT REPEATEDLY SAYING THAT THE REASON WHY SHE IS HERE ISTHAT NOBODY WANTS TO TAKE CARE OF HER, NO HOME,NO RELATIVES,NO JOB AND DONT KNOW WHERE TO GO.ENDORSED TO AM SHIFT IN APPARENTLY FAIR CONDITION.
[2021-04-12 07:45] VITALS: BP 158/79
[2021-04-12] MEDS: FAMOTIDINE 20 MG TABLET PO SCH (09:00)
[2021-04-12] MEDS: SODIUM HYPOCHLORITE 0.125% (QUARTER STRENGTH) 473 ML BOTTLE TP SCH (09:00)
[2021-04-12] MEDS: THERAHONEY GEL 1.5 OZ TUBE TOP SCH (09:00)
[2021-04-12] MEDS: BENZTROPINE MESYLATE 0.5 MG TABLET PO SCH ×2 (09:12→20:46)
[2021-04-12] MEDS: busPIRone 5 MG TABLET PO SCH ×3 (09:12→17:15)
[2021-04-12] MEDS: SULFAMETH/TRIMETH 800/160 MG TABLET PO SCH ×2 (09:12→20:46)
[2021-04-12] MEDS: AMLODIPINE 5 MG TABLET PO SCH (09:13)
[2021-04-12] MEDS: risperiDONE 1 MG TABLET PO SCH ×2 (09:13→20:46)
[2021-04-12] MEDS: MEMANTINE HCL 5 MG TABLET PO SCH (09:13)
[2021-04-12] MEDS: ASPIRIN 81 MG TAB.CHEW PO SCH (09:13)
[2021-04-12] MEDS: ENSURE ENLIVE (VAN) 240 ML LIQUID PO SCH ×2 (09:14→17:15)
[2021-04-12 15:34] VITALS: BP 134/70
--- NOTE | 2021-04-12 15:59 | NUR ---
Patient alert and oriented x2-3. On room air. No signs of acute distress. Patient denies SI/ HI. Patient denies pain/ discomfort at this time. Patient verbalized multiple times about what will happen after discharge. Nurse Orthopedic told the patient that the transition social worker will be arranging her safe discharge. Patient requires frequent redirection. Patient compliant with medications and care. Will be transferred to MHU.
[2021-04-12] MEDS: LORAZEPAM 1 MG TABLET PO PRN (17:15)
[2021-04-12 20:16] VITALS: BP 134/54
[2021-04-12] MEDS: MEMANTINE HCL 10 MG TABLET PO SCH (20:46)
[2021-04-12] MEDS: ATORVASTATIN 40 MG TABLET PO SCH (20:47)
[2021-04-12] MEDS ORDERED: MEMANTINE HCL 5 MG TABLET PO SCH (21:00)
--- NOTE | 2021-04-13 05:19 | NUR ---
PATIENT AWAKE BUT FORGETFUL, NO COMPLAIN OF PAIN, PATIENT GIVEN MOM FOR CONSTIPATION. PATIENT CALM TOOK ALL HER MEDICATIONS, BUT REFUSED SHOWERS. PATIENT SLEPT 5:15, SLEEP, WAKES UP AMBULATE TO HALLWAYS, CONT TO MONITOR.
[2021-04-13 08:02] VITALS: BP 128/62
[2021-04-13] MEDS: ASPIRIN 81 MG TAB.CHEW PO SCH (08:15)
[2021-04-13] MEDS: BENZTROPINE MESYLATE 0.5 MG TABLET PO SCH ×2 (08:15→21:12)
[2021-04-13] MEDS: AMLODIPINE 5 MG TABLET PO SCH (08:15)
[2021-04-13] MEDS: FAMOTIDINE 20 MG TABLET PO SCH (08:15)
[2021-04-13] MEDS: busPIRone 5 MG TABLET PO SCH ×3 (08:15→17:10)
[2021-04-13] MEDS: MEMANTINE HCL 10 MG TABLET PO SCH ×2 (08:18→21:12)
[2021-04-13] MEDS: SULFAMETH/TRIMETH 800/160 MG TABLET PO SCH ×2 (08:18→21:11)
[2021-04-13] MEDS: risperiDONE 1 MG TABLET PO SCH ×2 (08:18→21:12)
[2021-04-13] MEDS: ENSURE ENLIVE (VAN) 240 ML LIQUID PO SCH ×2 (09:17→17:11)
[2021-04-13] MEDS: THERAHONEY GEL 1.5 OZ TUBE TOP SCH (09:18)
[2021-04-13] MEDS: SODIUM HYPOCHLORITE 0.125% (QUARTER STRENGTH) 473 ML BOTTLE TP SCH (09:19)
[2021-04-13] MEDS: LORAZEPAM 1 MG TABLET PO PRN (09:38)
--- NOTE | 2021-04-13 15:19 | NUR ---
PATIENT CONTINUE TO WALK BACK AND FORTH PACING IN THE HALLWAY WORRIED THAT HER RENT IS DUE AND SHE HAS NOT BEEN ABLE TO LEAVE TO GO PAY FOR IT AND THAT SHE DOES NOT WANT TO GO TO ANY FACILITY WANTS TO GO TO HER OWN APARTMENT INFORMED HER THAT THE IMPROVEMENT DIRECTOR EDGER TAILER IS AWARE OF ALL THESE ISSUES AND THEY WILL BE ADDRESSING THEM BEFORE DISCHARGE.SHE IS COMPLIANT WITH MEDICATIONS AND CARE WILL CONTINUE TO PROVIDE SAFE AND THERAPEUTIC ENVIRONMENT AT ALL TIMES.
[2021-04-13 16:41] VITALS: BP 130/53
[2021-04-13] MEDS: ATORVASTATIN 40 MG TABLET PO SCH (21:12)
[2021-04-13] MEDS: TEMAZEPAM 7.5 MG CAPSULE PO PRN (21:13)
--- NOTE | 2021-04-13 23:35 | NUR ---
RECEIVED PT IN THE [facility] PACING BACK AND FORTH CONCERNED ABOUT HER APARTMENT AND PAYING HER RENT. PT REQUESTED A TUNA SANDWICH THIRD NURSE STATE"OUR PT WANT HAM SANDWICH AND WE WILL GIVE YOU A TUNA SANDWICH SO EXCHANGE WAS MADE. PT ATE 100 PERCENT OF MEAL AND TOOK ALL HER MEDICATION. CHECKED ON PT IN AN HOUR SHE WAS ASLEEP. WILL CONTINUE TO MONITOR FOR SAFETY ANY OTHER NEEDS PT MAY HAVE.
[2021-04-14 07:30] VITALS: BP 117/63
[2021-04-14] MEDS: BENZTROPINE MESYLATE 0.5 MG TABLET PO SCH ×2 (08:34→20:26)
[2021-04-14] MEDS: risperiDONE 1 MG TABLET PO SCH (08:34)
[2021-04-14] MEDS: SULFAMETH/TRIMETH 800/160 MG TABLET PO SCH ×2 (08:34→20:26)
[2021-04-14] MEDS: MEMANTINE HCL 10 MG TABLET PO SCH ×2 (08:34→20:26)
[2021-04-14] MEDS: FAMOTIDINE 20 MG TABLET PO SCH (08:34)
[2021-04-14] MEDS: busPIRone 5 MG TABLET PO SCH ×3 (08:35→16:18)
[2021-04-14] MEDS: ASPIRIN 81 MG TAB.CHEW PO SCH (08:35)
[2021-04-14] MEDS: AMLODIPINE 5 MG TABLET PO SCH (08:35)
[2021-04-14] MEDS: ENSURE ENLIVE (VAN) 240 ML LIQUID PO SCH ×2 (08:51→17:11)
[2021-04-14] MEDS: THERAHONEY GEL 1.5 OZ TUBE TOP SCH (08:52)
[2021-04-14] MEDS: SODIUM HYPOCHLORITE 0.125% (QUARTER STRENGTH) 473 ML BOTTLE TP SCH (08:53)
[2021-04-14] MEDS: LORAZEPAM 1 MG TABLET PO PRN (09:23)
--- NOTE | 2021-04-14 09:24 | NUR ---
ALERT BUT IS ANXIOUS AND REPEATS SELF OVER AND OVER STATED THAT THE DOCTORS DOES NOT KNOW HER AND SHE IS LOOSING HER APARTMENT BECAUSE SHE IS HERE PATIENT REASSURED UNABLE TO REDIRECT MEDICATED WITH ATIVAN AND PATIENT ENCOURAGED TO RELAX AND REST A LITTLE SHE CONTINUES TO WALK UP AND DOWN THE HALLWAY NON STOP WILL CONTINUE TO OBSERVE.
[2021-04-14] MEDS ORDERED: MIRALAX 17 GM POWD.PACK PO PRN (15:15)
--- NOTE | 2021-04-14 15:26 | NUR ---
ANTONETTE HARRIS DNP HERE SEEN PATIENT WITH NEW ORDERS AND NOTED.
--- NOTE | 2021-04-14 15:37 | NUR ---
SPOKE WITH PATIENT RE MIRALAX ORDERED BY ANTONETTE STATED THAT SHE HAD A SMALL BOWEL MOVEMENT TODAY AND NOT SURE IF SHE WANTS TO TAKE IT AT THIS TIME STATED WILL LET ME KNOW IF SHE WILL TAKE IT AND WHEN.
[2021-04-14 16:03] VITALS: BP 121/59
--- NOTE | 2021-04-14 16:29 | NUR ---
PATIENT NOTED TO BE CHEEKING HER PILL NOTED THAT SHE WAS HIDING HER PILL AFTER SHE DRANK WATER AND FAKED THAT SHE TOOK THEM PILL WAS THEN CRUSHED AND GIVEN BACK TO HER ALSO MIRALAX GIVEN AT THIS TIME WILL ENDORSE
--- NOTE | 2021-04-14 17:33 | NUR ---
DR LEWIS HERE TO SEE PATIENT AND AWARE THAT PATIENT HIDE HER MEDICATIONS IN HER CHEEK AND PRETENDED THAT SHE TOOK THEM WITH NEW ORDERS AND NOTED.PATIENT CONTINUES TO STATE THAT THE MEDICATIONS THAT WE ARE GIVING HER IS NOT GOOD FOR HER AND WHEN SHE TRIES TO TAKE THEM THERE ARE SO BITTER THAT IS WHY SHE HAS BEEN HIDING THEM IN HER MOUTH. PATIENT INSTRUCTED ON THE NEED TO BE COMPLIANT WITH PRESCRIBED MEDICATIONS FOR HER WELL BEING AND FAST RECOVERY EXPRESSED BUT SHE CONTINUES TO BE ARGUMENTATIVE WITH POOR INSIGHT.
[2021-04-14 20:00] VITALS: BP 115/63
[2021-04-14] MEDS: ATORVASTATIN 40 MG TABLET PO SCH (20:26)
[2021-04-15 07:30] VITALS: BP 131/69
[2021-04-15] MEDS: ASPIRIN 81 MG TAB.CHEW PO SCH (08:51)
[2021-04-15] MEDS: risperiDONE 1 MG/ML UDC PO SCH ×2 (08:52→16:34)
[2021-04-15] MEDS: busPIRone 5 MG TABLET PO SCH ×3 (08:52→16:34)
[2021-04-15] MEDS: MEMANTINE HCL 10 MG TABLET PO SCH ×2 (08:52→20:56)
[2021-04-15] MEDS: SULFAMETH/TRIMETH 800/160 MG TABLET PO SCH ×2 (08:52→20:55)
[2021-04-15] MEDS: AMLODIPINE 5 MG TABLET PO SCH (08:52)
[2021-04-15] MEDS: FAMOTIDINE 20 MG TABLET PO SCH (08:52)
[2021-04-15] MEDS: BENZTROPINE MESYLATE 0.5 MG TABLET PO SCH ×2 (08:52→20:55)
[2021-04-15] MEDS: ENSURE ENLIVE (VAN) 240 ML LIQUID PO SCH ×2 (08:53→16:34)
[2021-04-15] MEDS: SODIUM HYPOCHLORITE 0.125% (QUARTER STRENGTH) 473 ML BOTTLE TP SCH (09:32)
[2021-04-15] MEDS: THERAHONEY GEL 1.5 OZ TUBE TOP SCH (09:32)
--- NOTE | 2021-04-15 11:26 | NUR ---
LEONELA LACKEY Hearing: Patient had 5270 probable cause hearing today and it was upheld for grave disability.
--- NOTE | 2021-04-15 14:34 | NUR ---
SW Property Rippler: This SW contacted patient's property deburring machine operator and spoke with Mr. Higgins ([phone]) and informed of dc plan.
--- NOTE | 2021-04-15 17:33 | NUR ---
patient has been refused all am and 1pm medication ,Dr. Cui made aware,wound care done dressing changed.
[2021-04-15 20:00] VITALS: BP 132/70
[2021-04-15] MEDS: ATORVASTATIN 40 MG TABLET PO SCH (20:55)
[2021-04-16 07:30] VITALS: BP 132/75
--- NOTE | 2021-04-16 08:12 | NUR ---
SW Discharge Note: Patient will be discharged to a locked alf facility to [address] [address]; ([phone]) via ambulance at 12PM. Tire Bladder Maker spoke with Regi, Sales Route Driver at [facility][Note 3]; ([phone]), who stated patient will be accepted at facility today. Patient does not have any family members to contact. Patient is alert and oriented x1 and is not able to plan for self-care at this time but is willing to accept care provided for her at the facility. Patient denies any suicidal or homicidal ideation. Patient is aware and agreeable with discharge plans. Patient will continue to follow-up with her Psychiatrist Dr. Cui and Incident Response Engineer Dr. Lane at [address] [address]; ([phone]). Patient will follow-up at the center. Patient presents with euthymic mood and congruent affect.
[2021-04-16] MEDS: BENZTROPINE MESYLATE 0.5 MG TABLET PO SCH (08:44)
[2021-04-16] MEDS: MEMANTINE HCL 10 MG TABLET PO SCH (08:44)
[2021-04-16] MEDS: SULFAMETH/TRIMETH 800/160 MG TABLET PO SCH (08:44)
[2021-04-16] MEDS: ASPIRIN 81 MG TAB.CHEW PO SCH (08:44)
[2021-04-16] MEDS: busPIRone 5 MG TABLET PO SCH ×2 (08:44→12:05)
[2021-04-16] MEDS: AMLODIPINE 5 MG TABLET PO SCH (08:45)
[2021-04-16] MEDS: FAMOTIDINE 20 MG TABLET PO SCH (08:45)
[2021-04-16] MEDS: risperiDONE 1 MG/ML UDC PO SCH (08:45)
[2021-04-16] MEDS: ENSURE ENLIVE (VAN) 240 ML LIQUID PO SCH (08:47)
[2021-04-16] MEDS: SODIUM HYPOCHLORITE 0.125% (QUARTER STRENGTH) 473 ML BOTTLE TP SCH (10:20)
[2021-04-16] MEDS: THERAHONEY GEL 1.5 OZ TUBE TOP SCH (10:26)
[2021-04-16 15:00] VITALS: BP 118/62
--- NOTE | 2021-04-16 16:15 | NUR ---
Patient w discharged to [facility] via ambulance at 1530 pm. . Patient is alert and oriented x1 and is not able to plan for self-care at this time. all personal belonging returned to patient,vital sign stable,report called in to SNF spoke with Tari CARRERO. right ankle cellulitis dressing changed and picture taken.
== END 2021-04-16 15:30 | DRG 885 ==
LOC: ER 21:42 → GPS 03-27 00:26 → MEDSURG3 04-12 02:17 → GPSOV3 04-12 02:27 → MEDSURG3 04-12 02:32 → GPSOV3 04-12 02:33 → GPS 04-12 16:11
PROVIDERS: ADMIT Psychiatry & Neurology Psychosomatic Medicine; ATTEND Nurse Practitioner Acute Care
DX: F25.0 Schizoaffective disorder, bipolar type (principal); L03.115 Cellulitis of right lower limb; R45.851 Suicidal ideations; L97.319 Non-pressure chronic ulcer of right ankle with unspecified severity; L97.419 Non-pressure chronic ulcer of right heel and midfoot with unspecified severity; F19.10 Other psychoactive substance abuse, uncomplicated; E78.5 Hyperlipidemia, unspecified; E88.09 Other disorders of plasma-protein metabolism, not elsewhere classified; F41.9 Anxiety disorder, unspecified; I10 Essential (primary) hypertension; K21.9 Gastro-esophageal reflux disease without esophagitis; Z53.20 Procedure and treatment not carried out because of patient's decision for unspecified reasons; Z20.822 Contact with and (suspected) exposure to COVID-19; F29 Unspecified psychosis not due to a substance or known physiological condition; Z73.6 Limitation of activities due to disability; X58.XXXA Exposure to other specified factors, initial encounter; Y93.9 Activity, unspecified; Y92.89 Other specified places as the place of occurrence of the external cause; B95.62 Methicillin resistant Staphylococcus aureus infection as the cause of diseases classified elsewhere
CPT/HCPCS: 36415; 83735; 84100; 84443; 85025; 87070; 87077; 93005; A4663; G0480; J2060; J2358

== ENCOUNTER 2023-03-12 01:03 | Inpatient (IN) | payer MEDICARE, OTHER ==
[~2023-03-12] VITALS: Ht 160 cm; Wt 58.1 kg
[~2023-03-12 01:03] MED LIST: ACET-73 PO; AMLO-212 PO; ASPI81TA31 PO; ATOR80TA PO; BISA10SU12 RC; CEFT1VIA14 IVP; DIPH25CA83 PO; DOCU100C36 PO; FAMO-132 PO; HEPA500034 SUBCUT; HYDR-894 PO; LISI-657 PO; MAGN400O6 PO; MELA3TAB41 PO; OXYC15TA46 PO; POLY17PO4 PO; SENN-18 PO; TRAM50TA2 PO; VANC750P15 IV
[2023-03-12] MEDS ORDERED: CRAN450T9 PO (01:39)
[2023-03-12] MEDS ORDERED: ATOR80TA PO (01:39)
[2023-03-12] MEDS ORDERED: AMLO5TAB4 PO (01:39)
[2023-03-12] MEDS ORDERED: BENZ0.5T43 PO (01:39)
[2023-03-12] MEDS ORDERED: NA P133E RC (01:39)
[2023-03-12] MEDS ORDERED: MELA10TA2 PO (01:39)
[2023-03-12] MEDS ORDERED: DOCU100C36 PO (01:39)
[2023-03-12] MEDS ORDERED: PALI156D IM (01:39)
[2023-03-12] MEDS ORDERED: FLUO10CA26 PO (01:39)
[2023-03-12] MEDS ORDERED: POLY17PO4 PO (01:39)
[2023-03-12] MEDS ORDERED: MEMA10TA PO (01:39)
[2023-03-12] MEDS ORDERED: SENN8.6T19 PO (01:39)
[2023-03-12 01:42] LABS: HEMATOCRIT 36.8 % (31.2-41.9); MEAN CORPUSCULAR HEMOGLOBIN 29.8 uug (24.7-32.8); MEAN CORPUSCULAR VOLUME 89.5 fL (75.5-95.3); PLATELET COUNT (AUTO) 266 K/uL (179-408)
[2023-03-12 01:52] LABS: CARBON DIOXIDE 27 mmol/L (21-32); CHLORIDE 102 mmol/L (98-107); CREATININE 0.8 mg/dL (0.6-1.3); GLUCOSE 104 mg/dL (74-106); UREA NITROGEN, BLOOD 13 mg/dL (7-18)
[2023-03-12 02:05] LABS: THYROID STIMULATING HORMONE 2.823 mIU/mL (0.358-3.740)
[2023-03-12 02:09] LABS: ACETAMINOPHEN 6.7 ug/mL (10-30); ALANINE AMINOTRANSFERASE 15 U/L (14-59); ALKALINE PHOSPHATASE 74 U/L (50-136); ASPARTATE AMINOTRANSFERASE 6 U/L (15-37); BILIRUBIN,DIRECT 0.1 mg/dL (0.0-0.2); BILIRUBIN,TOTAL 0.6 mg/dL (0.2-1.0); TOTAL PROTEIN, SERUM 6.7 g/dL (6.4-8.2)
--- NOTE | 2023-03-12 03:20 | NUR ---
Medically cleared by Dr Soto.
[2023-03-12] MEDS ORDERED: LORAZEPAM 1 MG TABLET PO PRN (04:45)
[2023-03-12] MEDS ORDERED: ACETAMINOPHEN 325 MG TABLET PO PRN (04:45)
[2023-03-12] MEDS ORDERED: MAG HYDROX/AL HYDROX/SIMETH 30 ML LIQUID UDC PO PRN (04:45)
--- NOTE | 2023-03-12 04:45 | NUR ---
Transfered to MHU via gurny with no distress noted.
[2023-03-12 04:52] VITALS: BP 145/79
--- NOTE | 2023-03-12 05:52 | NUR ---
GPS: Admitted to unit earlier around 0450 a 67 yr.old female who lives in [facility] who was placed on a 72 hour hold for GD. Pt.has been refusing meds,attempting to leave facility and unable to care for self,per hold. Pt.is A/O x2. Has poor insight to why she's in the hosp. Anxious,uncooperative,needy,guarded and repetitive. Re-directed and re-assured prn. All personal belongings inventoried. Body check done by RN. Unit rules explained. Environment kept free from hazard. Pt's rights booklet/advisement given. AWOL precautions initiated. Will continue to monitor behavior.
[2023-03-12 07:30] VITALS: BP 168/74
--- NOTE | 2023-03-12 09:05 | NUR ---
Patient BP is 168/74, pulse 78, Yarn Conditioner was informed at 09:03AM.
[2023-03-12] MEDS: FLUOXETINE HCL 10 MG CAPSULE PO SCH (09:30)
[2023-03-12] MEDS: BENZTROPINE MESYLATE 0.5 MG TABLET PO SCH ×2 (09:30→17:21)
[2023-03-12] MEDS ORDERED: MAGNESIUM HYDROXIDE 30 ML LIQUID UDC PO PRN (09:30)
[2023-03-12] MEDS ORDERED: ACETAMINOPHEN ES 500 MG TABLET- SA PATIENTS-PAIN ONLY PO PRN (09:30)
[2023-03-12] MEDS ORDERED: FLEET ENEMA 133 ML BOTTLE RC PRN (09:30)
--- NOTE | 2023-03-12 09:36 | NUR ---
Water Treatment Plant Supervisor ordered Hydralazine 25 mg Q6HR PRN.
--- NOTE | 2023-03-12 09:45 | NUR ---
Patient refuses hydralazine 25 mg for BP 168/74. Patient states "I don't need blood pressure medications. My blood pressure goes down by itself".
--- NOTE | 2023-03-12 14:50 | NUR ---
LEONELA Initial Discharge Note: [place] [address] ([phone]). LEONELA contacted pt's friend, Shamika ([phone]) and was unable to connect over the phone. LEONELA will continue to work with pt, friend and MD to ensure a safe and proper discharge back to [facility].
--- NOTE | 2023-03-12 14:53 | NUR ---
Firearms Report: Microphone Boom Operator completed and submitted a [employer] firearms report for 5150 grave disability certifications. A copy of report has been placed in patient chart.
[2023-03-12 15:30] VITALS: BP 145/92
--- NOTE | 2023-03-12 15:59 | NUR ---
Received patient pacing in the hallway. Patient is A/O X 2 to person, place. Patient is disorganized, paranoid about getting UTI, requesting cranberry pills to prevent UTI, requests cranberry juice all the time, selective with medications and refused them earlier, suspicious. Patient states "I might have UTI, I can feel it" "I need cranberry pills. I can't live without them". Active listening provided. Fall and safety precautions implemented.
[2023-03-12] MEDS: DOCUSATE SODIUM 100 MG CAPSULE PO SCH (17:21)
[2023-03-12 19:48] VITALS: BP 153/77
[2023-03-12] MEDS: MIRALAX 17 GM POWD.PACK PO SCH (20:07)
[2023-03-12] MEDS: SENNOSIDES 1 TABLET PO SCH (20:07)
[2023-03-12] MEDS: ATORVASTATIN 40 MG TABLET PO SCH (20:07)
--- NOTE | 2023-03-12 20:40 | NUR ---
GPS: Pt.is anxious,needy,guarded and suspicious. Re-assured prn. Took bedtime meds.earlier. No aggressive behavior noted. Re-directed prn.Safe environment provided. Denies SI. Will continue to monitor.
[2023-03-12] MEDS ORDERED: Medication Not On Formulary EA (Atorvastatin Calcium (Lipitor) 80 MG) PO SCH (21:00)
[2023-03-13 07:02] LABS: *BILIRUBIN,URIN NEGATIVE (NEGATIVE); *CLARITY,URINE CLEAR (CLEAR); *COLOR,URINE YELLOW (YELLOW); *KETONES,URINE NEGATIVE (NEGATIVE); *UROBILINOGEN,URINE 0.2 E.U./dl (NORMAL); LEUKOCYTE ESTERASE ,URINE NEGATIVE (NEGATIVE); NITRITE, URINE NEGATIVE (NEGATIVE); UGLUCOSE NEGATIVE (NEGATIVE)
[2023-03-13 07:08] VITALS: BP 168/82
[2023-03-13 07:10] LABS: *BLOOD, URINE TRACE (NEGATIVE)
[2023-03-13 07:37] LABS: *AMPHETAMINE, URINE NEGATIVE (NEGATIVE); *CANNABINOID, URINE NEGATIVE (NEGATIVE); *COCCAINE, URINE NEGATIVE (NEGATIVE); *PHENCYCLIDINE SCREEN,URINE NEGATIVE (NEGATIVE)
[2023-03-13] MEDS: BENZTROPINE MESYLATE 0.5 MG TABLET PO SCH ×2 (08:53→17:17)
[2023-03-13] MEDS: FAMOTIDINE 20 MG TABLET PO SCH (08:53)
[2023-03-13] MEDS: ASPIRIN 81 MG TAB.CHEW PO SCH (08:53)
[2023-03-13] MEDS: DOCUSATE SODIUM 100 MG CAPSULE PO SCH ×2 (08:53→17:17)
[2023-03-13] MEDS: FLUOXETINE HCL 10 MG CAPSULE PO SCH (08:54)
[2023-03-13] MEDS: AMLODIPINE 5 MG TABLET PO SCH (08:54)
[2023-03-13] MEDS ORDERED: Medication Not On Formulary EA (Cranberry Fruit (Cranberry) 450 MG) PO SCH (09:00)
[2023-03-13 10:30] VITALS: BP 145/80
[2023-03-13 13:52] LABS: BACTERIA,URINE NONE SEEN /HPF (NONE SEEN); RBC,URINE 0-3 /HPF (0-3); WBC,URINE NONE SEEN /HPF (0-3)
[2023-03-13 13:53] LABS: CALCIUM CARBONATE CRYSTALS,UR NONE SEEN /HPF (NONE SEEN); CALCIUM OXALATE CRYSTALS,UR NONE SEEN /HPF (NONE SEEN); CALCIUM PHOSPHATE CRYSTALS,UR NONE SEEN /HPF (NONE SEEN); COARSE GRANULAR CASTS,URINE NONE SEEN /LPF; CYSTINE CRYSTALS,URINE NONE SEEN /HPF (NONE SEEN); FATTY CASTS,URINE NONE SEEN /LPF (NONE SEEN); MUCUS,URINE NONE SEEN /LPF (0-FEW); RED BLOOD CELL CASTS,URINE NONE SEEN /LPF (NONE SEEN); SPERM,URINE NONE SEEN /HPF (NONE SEEN); SQUAMOUS EPITHELIAL CELL,UR FEW /HPF (NONE SEEN); TRICHOMONAS,URINE NONE SEEN /HPF (NONE SEEN); TRIPLE PHOSPHATE CRYSTAL,UR NONE SEEN /HPF (NONE SEEN); TYROSINE CRYSTAL,URINE NONE SEEN /HPF (NONE SEEN); URIC ACID CRYSTALS,URINE NONE SEEN /HPF (NONE SEEN); URINE AMORPHOUS PHOSPHATES NONE SEEN /HPF; URINE AMORPHOUS URATE NONE SEEN /HPF; WAXY CASTS,URINE NONE SEEN /LPF (NONE SEEN); YEAST,URINE NONE SEEN /HPF (NONE SEEN)
[2023-03-13 15:15] VITALS: BP 115/59
--- NOTE | 2023-03-13 16:00 | NUR ---
Patient is restless, pacing in the hallway, always preoccupied, cooperative with nursing care, compliant with medications, quiet most of the time, not interactive with peers or staff, suspicious, paranoid about bowel movement and UTI. Patient states "What if I don't poop ever again?" "Should I get enema?" "I need to drink cranberry juice all the time because you don't have cranberry pills for UTI here". Patient is A/O X 2 to person, place. Patient is encourage to verbalize concerns. Fall and safety precautions implemented.
[2023-03-13] MEDS: MAGNESIUM HYDROXIDE 30 ML LIQUID UDC PO PRN (18:38)
--- NOTE | 2023-03-13 18:39 | NUR ---
Milk of Magnesia is given for constipation at 18:38, will be monitored for effectiveness.
[2023-03-13 20:19] VITALS: BP 134/53
[2023-03-13] MEDS: ATORVASTATIN 40 MG TABLET PO SCH (21:39)
[2023-03-13] MEDS: SENNOSIDES 1 TABLET PO SCH (21:39)
[2023-03-13] MEDS: MIRALAX 17 GM POWD.PACK PO SCH (21:40)
[2023-03-13] MEDS: ZOLPIDEM 5 MG TABLET PO PRN (22:37)
--- NOTE | 2023-03-13 22:38 | NUR ---
Pt reqiested medication to help with falling asleep. Gave Temazepam 5mg po prn for insomnia. Safety measures in place. Will continue to monitor.
--- NOTE | 2023-03-14 01:06 | NUR ---
Patient requests that her Mylanta be given/served in cranberry juice instead of water. Patient became easily upset when her need was not met. Pt did not notify this nurse of her request prior to this medication was served/given to her. Pt still drank this medication without any negative s/s.
--- NOTE | 2023-03-14 07:38 | NUR ---
GPS Nursing Notes: Patient awake in room, flat affect, patient stated " I want to my life is worthless, because I live in facility, I feel heavy, I dont have a plan, but I just want to ". Patient also complaining of constipation, patient on schedule, laxatives, Mom give, prune juice given, per patient had not had Bowel movement x 3 days. Abdomen soft to touch, no tenderness noted. Will continue to monitor. Patient contracted for safety, fall and safety precaution implemented, emotional support provided.
[2023-03-14 07:53] VITALS: BP 151/60
[2023-03-14] MEDS: DOCUSATE SODIUM 100 MG CAPSULE PO SCH ×2 (09:23→16:28)
[2023-03-14] MEDS: BENZTROPINE MESYLATE 0.5 MG TABLET PO SCH ×2 (09:23→16:28)
[2023-03-14] MEDS: FAMOTIDINE 20 MG TABLET PO SCH (09:24)
[2023-03-14] MEDS: AMLODIPINE 5 MG TABLET PO SCH (09:24)
[2023-03-14] MEDS: PSYLLIUM SEED PACKET PO SCH (09:24)
[2023-03-14] MEDS: FLUOXETINE HCL 10 MG CAPSULE PO SCH (09:24)
[2023-03-14] MEDS: ASPIRIN 81 MG TAB.CHEW PO SCH (09:24)
[2023-03-14] MEDS: GLUCERNA SHAKE 237 ML CAN PO SCH (09:31)
--- NOTE | 2023-03-14 10:07 | NUR ---
GPS 14 Day Certification : Patient place on 5249 , certification given to patient and explained. Patient was informed that a certification review hearing will be held with in four days. Also, Patient's right advocate will call to provide executive sales assistant on answering her questions. The court has been notified of this certification via [facility] portal on this day.
--- NOTE | 2023-03-14 11:17 | NUR ---
GPS Nursing notes: Patient pacing down hallway with steady gait, flat affect, "I dont know what going to happen to me", "I dont know what to do". Patient encourage to participate with selfcare, or go to dayroom to participate with selfcae, but patient refused. Patient medication compliant. Patient state she feels hopeless , "I am scared I dont know what is going to happen to me". emotional support provided. Will continue to monitor.
[2023-03-14 16:06] VITALS: BP 133/79
[2023-03-14 20:20] VITALS: BP 163/65
[2023-03-14] MEDS: MIRALAX 17 GM POWD.PACK PO SCH (21:08)
[2023-03-14] MEDS: SENNOSIDES 1 TABLET PO SCH (21:08)
[2023-03-14] MEDS: ATORVASTATIN 40 MG TABLET PO SCH (21:08)
[2023-03-14] MEDS: ZOLPIDEM 5 MG TABLET PO PRN (21:09)
[2023-03-15 08:01] VITALS: BP 157/68
[2023-03-15] MEDS: GLUCERNA SHAKE 237 ML CAN PO SCH (09:00)
[2023-03-15] MEDS ORDERED: FLUOXETINE HCL 10 MG CAPSULE PO SCH (09:00)
[2023-03-15] MEDS: ASPIRIN 81 MG TAB.CHEW PO SCH (09:09)
[2023-03-15] MEDS: DOCUSATE SODIUM 100 MG CAPSULE PO SCH ×2 (09:10→17:38)
[2023-03-15] MEDS: AMLODIPINE 5 MG TABLET PO SCH (09:10)
[2023-03-15] MEDS: FAMOTIDINE 20 MG TABLET PO SCH (09:10)
[2023-03-15] MEDS: BENZTROPINE MESYLATE 0.5 MG TABLET PO SCH ×2 (09:10→17:38)
[2023-03-15] MEDS: PSYLLIUM SEED PACKET PO SCH (09:11)
--- NOTE | 2023-03-15 16:17 | NUR ---
Patient is restless anxious, pacing up and down in the hallway. Pt is compliant with medications but needs a lot of prompting. Pt does not interacts with peers or staff, suspicious, paranoid about bowel movement . Patient states " I gained weigh because i can not poop "What if I don't poop ever again?" "Should I need an enema?". Patient is A/O X 2 to person, place. Patient is encourage to verbalize concerns. Safety precautions in put in place.Continue to monitor for safety continue with treatment plan
[2023-03-15 17:15] VITALS: BP 176/60
[2023-03-15 19:50] VITALS: BP 178/65
[2023-03-15] MEDS: MIRALAX 17 GM POWD.PACK PO SCH (22:00)
[2023-03-15] MEDS: ATORVASTATIN 40 MG TABLET PO SCH (22:00)
[2023-03-15] MEDS: SENNOSIDES 1 TABLET PO SCH (22:00)
[2023-03-15] MEDS: ZOLPIDEM 5 MG TABLET PO PRN (22:33)
--- NOTE | 2023-03-15 22:34 | NUR ---
Patient requested medication for help with trouble falling alseep. Gave Zolpidem 5mg for insomnia mgt. Safety implemented. Will continue to monitor.
[2023-03-16 07:41] VITALS: BP 161/56
[2023-03-16] MEDS: FLUOXETINE HCL 20 MG CAPSULE PO SCH (08:24)
[2023-03-16] MEDS: FAMOTIDINE 20 MG TABLET PO SCH (08:24)
[2023-03-16] MEDS: BENZTROPINE MESYLATE 0.5 MG TABLET PO SCH (08:24)
[2023-03-16] MEDS: ASPIRIN 81 MG TAB.CHEW PO SCH (08:24)
[2023-03-16] MEDS: DOCUSATE SODIUM 100 MG CAPSULE PO SCH ×2 (08:24→16:18)
[2023-03-16] MEDS: AMLODIPINE 5 MG TABLET PO SCH (08:25)
[2023-03-16] MEDS: PSYLLIUM SEED PACKET PO SCH (08:25)
[2023-03-16] MEDS: GLUCERNA SHAKE 237 ML CAN PO SCH (09:00)
--- NOTE | 2023-03-16 12:12 | NUR ---
LEONELA Discharge Update: LEONELA contacted pt's conservatorScott ([phone]) and left a voicemail for a call back to discuss pt's discharge plan.
--- NOTE | 2023-03-16 13:42 | NUR ---
GPS: Nursing Notes: Destructive Behavior To Self: Patient is awake and responding to her name, suspicious, guarded, paranoid behavior, constantly coming to nursing station and asking for laxatives, stated "I am constipated... I need medications.." Patient is getting laxatives routinely, and had a BM yesterday..", unable to formulate a viable plan for self care, needs a lot prompting to participate in therapeutic groups, in and out of therapeutic groups, redirected and reoriented during shift, unkempt appearance, continue to monitor for safety, continue with treatment plan.
[2023-03-16 16:08] VITALS: BP 172/65
[2023-03-16] MEDS: hydrALAZINE HCL 25 MG TABLET PO PRN (16:18)
[2023-03-16] MEDS: MAGNESIUM HYDROXIDE 30 ML LIQUID UDC PO PRN (18:37)
[2023-03-16 19:51] VITALS: BP 146/56
[2023-03-16] MEDS: MIRALAX 17 GM POWD.PACK PO SCH (20:48)
[2023-03-16] MEDS: ATORVASTATIN 40 MG TABLET PO SCH (20:49)
[2023-03-16] MEDS: SENNOSIDES 1 TABLET PO SCH (20:49)
[2023-03-16] MEDS: ZOLPIDEM 5 MG TABLET PO PRN (20:49)
[2023-03-17] MEDS: DOCUSATE SODIUM 100 MG CAPSULE PO SCH ×2 (08:16→16:26)
[2023-03-17] MEDS: FAMOTIDINE 20 MG TABLET PO SCH (08:16)
[2023-03-17] MEDS: FLUOXETINE HCL 20 MG CAPSULE PO SCH (08:16)
[2023-03-17] MEDS: AMLODIPINE 5 MG TABLET PO SCH (08:18)
[2023-03-17] MEDS: GLUCERNA SHAKE 237 ML CAN PO SCH (08:18)
[2023-03-17] MEDS: PSYLLIUM SEED PACKET PO SCH (08:18)
[2023-03-17 08:24] VITALS: BP 112/91
[2023-03-17] MEDS: ASPIRIN 81 MG TAB.CHEW PO SCH (08:27)
--- NOTE | 2023-03-17 11:17 | NUR ---
LEONELA Discharge Update: LEONELA spoke with pt's probate conservatorScott ([phone]) [place] [address] ([phone]) upon discharge. LEONELA provided fax number for conservatorship paperwork.
--- NOTE | 2023-03-17 15:11 | NUR ---
GPS: Nursing Notes: Destructive Behavior To Self: Patient is awake and responding to her name, isolative and withdrawn in her room, minimal interactions with peers, resistant with nursing care, unkempt appearance, resistant with nursing care at times, depressed mood and blunted affect, gets easily anxious when redirected, needs prompting to participate in therapeutic groups, denies SI, unable to formulate a viable plan for self care, verbally latisha for safety, continue with treatment plan.
[2023-03-17 16:03] VITALS: BP 145/50
[2023-03-17] MEDS: MIRALAX 17 GM POWD.PACK PO SCH (20:53)
[2023-03-17] MEDS: ATORVASTATIN 40 MG TABLET PO SCH (20:53)
[2023-03-17] MEDS: ZOLPIDEM 5 MG TABLET PO PRN (20:53)
[2023-03-17] MEDS: SENNOSIDES 1 TABLET PO SCH (20:53)
[2023-03-17 20:54] VITALS: BP 121/66
[2023-03-18 08:04] VITALS: BP 175/71
[2023-03-18] MEDS: DOCUSATE SODIUM 100 MG CAPSULE PO SCH ×2 (08:23→17:31)
[2023-03-18] MEDS: ASPIRIN 81 MG TAB.CHEW PO SCH (08:23)
[2023-03-18] MEDS: FLUOXETINE HCL 20 MG CAPSULE PO SCH (08:23)
[2023-03-18] MEDS: PSYLLIUM SEED PACKET PO SCH (08:24)
[2023-03-18] MEDS: AMLODIPINE 5 MG TABLET PO SCH (08:24)
[2023-03-18] MEDS: FAMOTIDINE 20 MG TABLET PO SCH (08:24)
--- NOTE | 2023-03-18 13:00 | NUR ---
Patient had court hearing today, tribal judge Akilah Oliveira gave 14 Day hold probable cause for GD only.
--- NOTE | 2023-03-18 15:13 | NUR ---
Received patient pacing in hallway concerned about when it will be her next bowel movement. Patient is A/O X 2 to person. Patient is forgetful, confused, disoriented, disorganized, paranoid about body fluids either urine or feces. Patient states "I can't remember what I should be worry about" "Can I have milk of magnesia to prevent constipation?" Patient is cooperative with nursing care and compliant with medications. Active listening provided. Fall and safety precautions implemented.
[2023-03-18 16:30] VITALS: BP 156/76
[2023-03-18 21:12] VITALS: BP 132/62
[2023-03-18] MEDS: MIRALAX 17 GM POWD.PACK PO SCH (21:50)
[2023-03-18] MEDS: SENNOSIDES 1 TABLET PO SCH (21:50)
[2023-03-18] MEDS: ATORVASTATIN 40 MG TABLET PO SCH (21:50)
[2023-03-19] MEDS: ZOLPIDEM 5 MG TABLET PO PRN ×2 (01:03→21:04)
[2023-03-19 07:30] VITALS: BP 179/67
[2023-03-19] MEDS: FAMOTIDINE 20 MG TABLET PO SCH (08:26)
[2023-03-19] MEDS: DOCUSATE SODIUM 100 MG CAPSULE PO SCH ×2 (08:26→16:59)
[2023-03-19] MEDS: ASPIRIN 81 MG TAB.CHEW PO SCH (08:26)
[2023-03-19] MEDS: FLUOXETINE HCL 20 MG CAPSULE PO SCH (08:26)
[2023-03-19] MEDS: PSYLLIUM SEED PACKET PO SCH (08:27)
[2023-03-19] MEDS: AMLODIPINE 5 MG TABLET PO SCH (08:27)
[2023-03-19 09:00] VITALS: BP 153/80
--- NOTE | 2023-03-19 15:03 | NUR ---
Patient is preoccupied about her weight. Patient states "I'm wearing the biggest pants in the hospital. I'm so ashamed of my body". Patient is cooperative with nursing care, compliant with medications, calm, quiet most of the time, forgetful and confused at times. Patient is still fixated about bowel movements and UTI. Patient is encourage to verbalize concerns. Fall and safety precautions implemented.
[2023-03-19] MEDS: hydrALAZINE HCL 25 MG TABLET PO PRN (15:24)
--- NOTE | 2023-03-19 15:28 | NUR ---
Patient blood pressure is 183/78, PRN Hydralazine 25 mg is given at 15:24, will be monitored for effectiveness.
[2023-03-19 15:30] VITALS: BP 183/78
[2023-03-19 19:50] VITALS: BP 154/62
[2023-03-19] MEDS: SENNOSIDES 1 TABLET PO SCH (20:19)
[2023-03-19] MEDS: ATORVASTATIN 40 MG TABLET PO SCH (20:19)
[2023-03-19] MEDS: MIRALAX 17 GM POWD.PACK PO SCH (20:19)
--- NOTE | 2023-03-20 05:47 | NUR ---
GPS: Pt.slept 7 hrs.last night. Anxious,needy and wants staff to do everything for her as far as her adl's are concerned. Refused to shower when asked despite telling her that staff will help her fully. Claims she requires total assist during shower and expects staff to do everything for her. Re-directed and re-assured. Safe environment provided. Needs anticipated. Denies SI. Will continue to monitor.
[2023-03-20 07:30] VITALS: BP 182/69
[2023-03-20] MEDS: DOCUSATE SODIUM 100 MG CAPSULE PO SCH ×2 (08:32→17:02)
[2023-03-20] MEDS: PSYLLIUM SEED PACKET PO SCH (08:32)
[2023-03-20] MEDS: FAMOTIDINE 20 MG TABLET PO SCH (08:32)
[2023-03-20] MEDS: ASPIRIN 81 MG TAB.CHEW PO SCH (08:32)
[2023-03-20] MEDS: FLUOXETINE HCL 20 MG CAPSULE PO SCH (08:32)
[2023-03-20] MEDS: AMLODIPINE 5 MG TABLET PO SCH (08:33)
[2023-03-20 09:33] VITALS: BP 157/61
--- NOTE | 2023-03-20 09:48 | NUR ---
SW Discharge Update: LEONELA contacted pt's probate conservator, Scott ([phone]) and left a voicemail informing her that pt will return to [address] [address] ([phone]) on Thursday03/24/23.
--- NOTE | 2023-03-20 14:55 | NUR ---
LEONELA Discharge Update: LEONELA contacted pt's probate conservator, Scott ([phone]) and left a second voicemail informing her that pt will return to [address] [address] ([phone]) on Thursday03/24/23.
--- NOTE | 2023-03-20 15:56 | NUR ---
Patient keeps repeating "I'm empty from inside" "There's a hole inside me" "I'm fat and need to stop eating" "I need cranberry juices because without it I'll get UTI" "I should be concerned but I don't remember what concerns me" Patient is confused, disoriented, disorganized, preoccupied, pacing in the hallway, cooperative with nursing care, compliant with medications. Reality orientation provided. Fall and safety precautions implemented.
[2023-03-20 16:04] VITALS: BP 141/50
[2023-03-20 20:01] VITALS: BP 137/56
[2023-03-20] MEDS: MIRALAX 17 GM POWD.PACK PO SCH (20:07)
[2023-03-20] MEDS: ATORVASTATIN 40 MG TABLET PO SCH (20:07)
[2023-03-20] MEDS: SENNOSIDES 1 TABLET PO SCH (20:07)
[2023-03-20] MEDS: ZOLPIDEM 5 MG TABLET PO PRN (21:18)
[2023-03-21 07:45] VITALS: BP 161/57
[2023-03-21] MEDS: PSYLLIUM SEED PACKET PO SCH (08:34)
[2023-03-21] MEDS: ASPIRIN 81 MG TAB.CHEW PO SCH (08:34)
[2023-03-21] MEDS: FLUOXETINE HCL 20 MG CAPSULE PO SCH ×2 (08:35→09:00)
[2023-03-21] MEDS: hydrALAZINE HCL 25 MG TABLET PO PRN ×2 (08:35→16:57)
[2023-03-21] MEDS: FAMOTIDINE 20 MG TABLET PO SCH (08:35)
[2023-03-21] MEDS: DOCUSATE SODIUM 100 MG CAPSULE PO SCH ×2 (08:36→16:57)
[2023-03-21] MEDS: AMLODIPINE 5 MG TABLET PO SCH (08:37)
--- NOTE | 2023-03-21 14:45 | NUR ---
GPS: Nursing Notes: Thought Disorder: Patient is awake and responding to her name, pacing on the hallway, stated "I am feeling big.." Depressed mood and anxious affect, impaired judgment, refusing her Prozac this am, stated "I don't need it..", hoarding her supplement and juices, stated "I will drink it later..", But she does not drink it, needs prompting to participate in therapeutic groups, unable to formulate a viable plan for self care, unkempt appearance, continue to monitor for safety, continue with treatment plan.
[2023-03-21 16:04] VITALS: BP 176/81
[2023-03-21] MEDS: ATORVASTATIN 40 MG TABLET PO SCH (20:31)
[2023-03-21] MEDS: MIRALAX 17 GM POWD.PACK PO SCH (20:31)
[2023-03-21] MEDS: SENNOSIDES 1 TABLET PO SCH (20:32)
--- NOTE | 2023-03-21 20:33 | NUR ---
GPS: Pt is anxious,depressed and repetitive. Needy and frequently asking for things. Due meds. were attempted to be given and pt.was caught cheeking her meds. Constant health teachings given regarding importance of taking meds.prescribed but unsuccessful. Insight and judgment remains impaired. Safety emphasized. Remains fixated on her bowels. Will continue to monitor.
[2023-03-21] MEDS: ZOLPIDEM 5 MG TABLET PO PRN (21:51)
[2023-03-21] MEDS: MAGNESIUM HYDROXIDE 30 ML LIQUID UDC PO PRN (21:51)
--- NOTE | 2023-03-21 22:48 | NUR ---
GPS: Pt.refuses to have her B/P re-checked despite explanation of importance. Denies pain at this time. Safe environment provided. Encouraged to take meds.as ordered.
[2023-03-22 07:20] LABS: HEMATOCRIT 36.2 % (31.2-41.9); MEAN CORPUSCULAR VOLUME 89.4 fL (75.5-95.3); PLATELET COUNT (AUTO) 286 K/uL (179-408)
[2023-03-22 07:33] LABS: CREATININE 0.6 mg/dL (0.6-1.3); POTASSIUM 4.1 mmol/L (3.5-5.1)
[2023-03-22 08:00] VITALS: BP 151/59
[2023-03-22] MEDS: DOCUSATE SODIUM 100 MG CAPSULE PO SCH ×2 (08:51→16:10)
[2023-03-22] MEDS: PSYLLIUM SEED PACKET PO SCH (08:52)
[2023-03-22] MEDS: FAMOTIDINE 20 MG TABLET PO SCH (09:00)
[2023-03-22] MEDS: ASPIRIN 81 MG TAB.CHEW PO SCH (09:00)
[2023-03-22] MEDS ORDERED: AMLODIPINE 5 MG TABLET PO SCH (09:00)
[2023-03-22] MEDS: FLUOXETINE HCL 20 MG CAPSULE PO SCH (09:00)
--- NOTE | 2023-03-22 11:12 | NUR ---
GPS: Nursing Notes: Noncompliance With Medications: Patient is awake and responding to her name, impaired judgment, cheeking medications, selectively refusing her medications, stated "I don't need to take medication..", AWOL risk, running to exit door after staff leave the unit, explained the pros and cons of medication, but continue to refuse her medications, resistant with nursing care, refusing to shower, evasive when questioned by staff, stated "I took my medications today...", redirected and reoriented during shift, but continue to refuse her medications, poor insight, unable to formulate a viable plan for self care, continue to monitor for safety, continue with treatment plan.
[2023-03-22 16:35] VITALS: BP 160/68
[2023-03-22 19:50] VITALS: BP 123/53
[2023-03-22] MEDS: SENNOSIDES 1 TABLET PO SCH (20:19)
[2023-03-22] MEDS: ATORVASTATIN 40 MG TABLET PO SCH (20:20)
[2023-03-22] MEDS: MIRALAX 17 GM POWD.PACK PO SCH (20:20)
--- NOTE | 2023-03-22 20:24 | NUR ---
Patient take the pill in her mouth but hides it on her cheek, when ask her to swallow the pill, patient spit out the pills, refused all po meds.
[2023-03-22] MEDS: ZOLPIDEM 5 MG TABLET PO PRN (21:13)
--- NOTE | 2023-03-23 04:45 | NUR ---
Patient awake, able to make needs known, patient slept fairly well, assisted with farrah care, patient continent and incontinent of the baldder. Patient took sleeping pill last night with effective results, no adverse reaction noted from sleeping medications, patient remains non compliant with medication and care. continue to encourage to cooperate with the care.
[2023-03-23 08:10] VITALS: BP 144/64
[2023-03-23] MEDS: DOCUSATE SODIUM 100 MG CAPSULE PO SCH ×2 (08:44→16:55)
[2023-03-23] MEDS: PSYLLIUM SEED PACKET PO SCH (08:44)
[2023-03-23] MEDS: AMLODIPINE 5 MG TABLET PO SCH (08:45)
[2023-03-23] MEDS: FAMOTIDINE 20 MG TABLET PO SCH (09:00)
[2023-03-23] MEDS: ASPIRIN 81 MG TAB.CHEW PO SCH (09:00)
[2023-03-23] MEDS: FLUOXETINE HCL 20 MG CAPSULE PO SCH (09:00)
--- NOTE | 2023-03-23 14:28 | NUR ---
GPS: Nursing Notes: Noncompliance With Medication: Patient is awake and responding to her name, impaired judgment, poor insight, resistant with nursing care, unable to formulate a viable plan for self care, refusing to shower, selectively refusing her medications, cheeking medications, hoarding juices, stated "I am going to drink them later.." But she never drink them, paranoid behavior, fixated on BM's, constantly asking for laxatives, continue to monitor for safety, AWOL risk, continue with treatment plan.
[2023-03-23 16:03] VITALS: BP 147/87
[2023-03-23 19:44] VITALS: BP 148/82
[2023-03-23] MEDS: MIRALAX 17 GM POWD.PACK PO SCH (21:00)
[2023-03-23] MEDS: SENNOSIDES 1 TABLET PO SCH (21:00)
[2023-03-23] MEDS: ATORVASTATIN 40 MG TABLET PO SCH (21:00)
--- NOTE | 2023-03-23 21:00 | NUR ---
Received patient in bed, asleep but ambulate to hallways when awake, patient continues to refused all po medications, wanted to take sleeping medications only, patient refused to take showers, non compliant with care, cont to offer.
[2023-03-23] MEDS: ZOLPIDEM 5 MG TABLET PO PRN (21:38)
--- NOTE | 2023-03-24 06:25 | NUR ---
Patient slept well last night, patient has episode of argumentative behavior, patient everything her ways and she will not accept the correct ways of doing things, cont to redirect behavior,
[2023-03-24] MEDS: PSYLLIUM SEED PACKET PO SCH (08:14)
[2023-03-24] MEDS: DOCUSATE SODIUM 100 MG CAPSULE PO SCH (08:14)
[2023-03-24 08:16] VITALS: BP 160/77
[2023-03-24] MEDS: FAMOTIDINE 20 MG TABLET PO SCH (08:19)
[2023-03-24] MEDS: ASPIRIN 81 MG TAB.CHEW PO SCH (08:19)
[2023-03-24] MEDS: FLUOXETINE HCL 20 MG CAPSULE PO SCH (08:19)
[2023-03-24] MEDS: hydrALAZINE HCL 25 MG TABLET PO PRN (08:20)
[2023-03-24] MEDS: AMLODIPINE 5 MG TABLET PO SCH (08:20)
[2023-03-24 10:20] VITALS: BP 143/64
--- NOTE | 2023-03-24 10:22 | NUR ---
LEONELA Discharge Note: Pt will return to [facility] [address] [place] [address] ([phone]) via Ambulance transportation at 11AM. LEONELA spoke with admin coordinator Regi at the facility who states they are ready to accept the patient today. Pt is aware and agreeable with discharge plan. LEONELA left a voicemail for pts probate conservator, Scott ([phone]) regarding pts discharge details. Scott was previously agreeable with the discharge plan. Pt is alert and oriented x3, is unable to plan for self-care at this time. However, pt is willing to accept care at SNF. Pt denies any suicidal or homicidal ideation. Pt will follow-up at the facility with Psychiatrist, Dr. Cui ([phone]) and Insurance Plan Specialist, Dr. Rashid. Pt presents with calm mood and congruent affect. PHARMACY: [facility]: ([phone]) [address], [address], [place] [address].
--- NOTE | 2023-03-24 11:30 | NUR ---
GPS: Nursing Notes: Discharge Notes: Patient is awake and responding to her name, compliant with her medications this am, following staff directions, but argumentative at times, resistant with nursing care, fixated with BM's, denies SI/HI, denies AH/VH, denies pain or discomfort, denies SOB. Patient discharged to [facility] [place] [address] [place] [address] . geothermal sheet metal worker informed of discharge plans to her Probate conservator - [facility] . Report given to facility's admitting nurse - Tari RN supervisor dry cell assembly. Transported to facility via ambulance, took all her belongings with her. Patient will follow up with Dr. Cui and Dr. Elizabeth at facility for aftercare.
== END 2023-03-24 11:30 | DRG 885 ==
LOC: ER 01:17 → GPS 03:00
PROVIDERS: ADMIT Psychiatry & Neurology Psychiatry; ATTEND Student in an Organized Health Care Education/Training Program
DX: F29 Unspecified psychosis not due to a substance or known physiological condition (principal); F03.94 Unspecified dementia, unspecified severity, with anxiety; F03.93 Unspecified dementia, unspecified severity, with mood disturbance; R45.851 Suicidal ideations; F25.9 Schizoaffective disorder, unspecified; K21.9 Gastro-esophageal reflux disease without esophagitis; E78.5 Hyperlipidemia, unspecified; Z91.199 Patient's noncompliance with other medical treatment and regimen due to unspecified reason; Z91.148 Patient's other noncompliance with medication regimen for other reason; Z79.899 Other long term (current) drug therapy; K59.00 Constipation, unspecified; I10 Essential (primary) hypertension
CPT/HCPCS: 36415; 74018; 84443; 85025; G0480

== ENCOUNTER 2024-02-08 21:11 | Inpatient (IN) | payer MEDICARE, OTHER ==
[~2024-02-08] VITALS: Ht 160 cm; Wt 63.5 kg
[~2024-02-08 21:11] MED LIST changes: -AMLO-212 PO; +AMLO5TAB4 PO; -BISA10SU12 RC; -CEFT1VIA14 IVP; +CRAN450T9 PO; -DIPH25CA83 PO; -HEPA500034 SUBCUT; -HYDR-894 PO; -LISI-657 PO; -MELA3TAB41 PO; +NA P133E RC; -OXYC15TA46 PO; +PALI156D IM; -SENN-18 PO; +SENN8.6T19 PO; -TRAM50TA2 PO; -VANC750P15 IV
[2024-02-08] MEDS ORDERED: DOCU100C36 PO (21:30)
[2024-02-08] MEDS ORDERED: MELA10TA2 PO (21:30)
[2024-02-08] MEDS ORDERED: BISA-79 PO (21:30)
[2024-02-08] MEDS ORDERED: MULT-1045 PO (21:30)
[2024-02-08] MEDS ORDERED: HYDR25TA86 PO (21:30)
[2024-02-08] MEDS ORDERED: [UNRECOGNIZED DRUG - CODE] PO (21:30)
[2024-02-08] MEDS ORDERED: POLY17PO4 PO (21:30)
[2024-02-08] MEDS ORDERED: FLUO20CA36 PO (21:30)
[2024-02-08] MEDS ORDERED: RISP1TAB7 PO (21:30)
[2024-02-08] MEDS ORDERED: MAG355OR18 PO (21:30)
[2024-02-09 00:18] LABS: BASOPHILS # (AUTO) 0.1 K/UL (0.0-0.2); EOSINOPHILS # (AUTO) 0.1 K/uL (0.0-0.7); EOSINOPHILS % (AUTO) 1.7 % (0.0-7.0); HEMATOCRIT 33.9 % (31.2-41.9); HEMOGLOBIN 11.7 g/dL (10.9-14.3); LYMPHOCYTES # (AUTO) 1.7 K/uL (0.8-4.8); LYMPHOCYTES % (AUTO) 25.9 % (20.5-51.5); MEAN CORPUSCULAR HEMOGLOBIN 30.6 uug (24.7-32.8); MEAN CORPUSCULAR HGB CONC 35 g/dL (32.3-35.6); MEAN CORPUSCULAR VOLUME 88.4 fL (75.5-95.3); MONOCYTES # (AUTO) 0.7 K/uL (0.1-1.30); MONOCYTES % (AUTO) 9.9 % (0.0-11.0); NEUTROPHILS # (AUTO) 4.2 K/uL (1.8-8.9); NEUTROPHILS % (AUTO) 61.5 % (38.5-71.5); PLATELET COUNT (AUTO) 312 K/uL (179-408); RED BLOOD CELL COUNT(AUTO) 3.84 MIL/uL (3.63-4.92); RED CELL DISTRIBUTION WIDTH 12.5 % (12.3-17.7); WHITE BLOOD COUNT (AUTO) 6.7 K/uL (3.8-11.8)
[2024-02-09 00:21] LABS: DIFFERENTIAL COMMENT 1
[2024-02-09 00:26] LABS: CALCIUM 8.9 mg/dL (8.5-10.1); CARBON DIOXIDE 29 mmol/L (21-32); CHLORIDE 101 mmol/L (98-107); CREATININE 0.7 mg/dL (0.6-1.3); GLUCOSE 114 mg/dL (74-106); POTASSIUM 4.6 mmol/L (3.5-5.1); SODIUM SERUM 139 mmol/L (136-145); UREA NITROGEN, BLOOD 23 mg/dL (7-18)
[2024-02-09 00:39] LABS: ALANINE AMINOTRANSFERASE 39 U/L (14-59); ALBUMIN 3.2 g/dL (3.4-5.0); ALKALINE PHOSPHATASE 95 U/L (50-136); ASPARTATE AMINOTRANSFERASE 17 U/L (15-37); BILIRUBIN,DIRECT 0.1 mg/dL (0.0-0.2); BILIRUBIN,TOTAL 0.4 mg/dL (0.2-1.0); NT-PRO BNP 379 pg/mL (0-125); TOTAL PROTEIN, SERUM 6.9 g/dL (6.4-8.2)
[2024-02-09] MEDS ORDERED: REMEDY ESSENTIAL ZINC PASTE 113 GM TP PRN (01:45)
[2024-02-09] MEDS ORDERED: ONDANSETRON 4 MG/2 ML VIAL IV PRN (01:45)
[2024-02-09 05:11] VITALS: BP 184/74; TEMP 98.5; O2SAT 98
[2024-02-09] MEDS: hydrALAZINE HCL 10 MG TABLET PO PRN (05:38)
[2024-02-09] MEDS: IV NS 1000 ML 1,000 ML IV PRN (05:49)
[2024-02-09] MEDS: PANTOPRAZOLE SODIUM 40 MG VIAL IV SCH (08:35)
[2024-02-09] MEDS ORDERED: Medication Not On Formulary EA (Melatonin 1 TAB) PO PRN (09:30)
[2024-02-09] MEDS ORDERED: MAGNESIUM HYDROXIDE 30 ML LIQUID UDC PO PRN (09:30)
[2024-02-09 11:30] VITALS: BP 170/66; TEMP 98.3; O2SAT 96
[2024-02-09] MEDS: BISACODYL 5 MG TABLET.DR PO PRN (12:10)
[2024-02-09] MEDS: AMLODIPINE 5 MG TABLET PO SCH (12:11)
[2024-02-09] MEDS ORDERED: FAMO20TA8 PO (14:48)
[2024-02-09 15:52] VITALS: BP 118/52; TEMP 98.6; O2SAT 94
[2024-02-09] MEDS: risperiDONE 1 MG TABLET PO SCH (16:41)
[2024-02-09] MEDS: DOCUSATE SODIUM 100 MG CAPSULE PO SCH (16:41)
[2024-02-09 20:11] VITALS: BP 136/57; TEMP 98.5; O2SAT 94
[2024-02-09] MEDS: SENNOSIDES 1 TABLET PO SCH (20:41)
[2024-02-09] MEDS: ATORVASTATIN 40 MG TABLET PO SCH (20:44)
[2024-02-09] MEDS: MELATONIN 3 MG TABLET PO PRN (20:44)
[2024-02-09] MEDS ORDERED: Medication Not On Formulary EA (Atorvastatin Calcium (Lipitor) 80 MG) PO SCH (21:00)
[2024-02-10] MEDS: CEFAZOLIN 1 G in IV DEXTROSE 5% 50 ML IV SCH (01:25)
[2024-02-10 04:26] VITALS: BP 189/71; TEMP 98.3; O2SAT 96
[2024-02-10] MEDS: hydrALAZINE HCL 25 MG TABLET PO PRN (05:27)
[2024-02-10 07:54] LABS: BASOPHILS # (AUTO) 0.1 K/UL (0.0-0.2); BASOPHILS % (AUTO) 0.9 % (0.0-2.0); EOSINOPHILS # (AUTO) 0.1 K/uL (0.0-0.7); EOSINOPHILS % (AUTO) 1.7 % (0.0-7.0); HEMATOCRIT 37.7 % (31.2-41.9); HEMOGLOBIN 12.8 g/dL (10.9-14.3); LYMPHOCYTES # (AUTO) 1.4 K/uL (0.8-4.8); LYMPHOCYTES % (AUTO) 21.3 % (20.5-51.5); MEAN CORPUSCULAR HEMOGLOBIN 30.1 uug (24.7-32.8); MEAN CORPUSCULAR HGB CONC 34 g/dL (32.3-35.6); MEAN CORPUSCULAR VOLUME 88.9 fL (75.5-95.3); MONOCYTES # (AUTO) 0.6 K/uL (0.1-1.30); MONOCYTES % (AUTO) 9.7 % (0.0-11.0); NEUTROPHILS # (AUTO) 4.4 K/uL (1.8-8.9); NEUTROPHILS % (AUTO) 66.4 % (38.5-71.5); PLATELET COUNT (AUTO) 316 K/uL (179-408); RED BLOOD CELL COUNT(AUTO) 4.24 MIL/uL (3.63-4.92); RED CELL DISTRIBUTION WIDTH 12.3 % (12.3-17.7); WHITE BLOOD COUNT (AUTO) 6.7 K/uL (3.8-11.8)
[2024-02-10 08:09] LABS: DIFFERENTIAL COMMENT 1
[2024-02-10 08:17] LABS: THYROID STIMULATING HORMONE 3.204 mIU/mL (0.358-3.740)
[2024-02-10 08:22] LABS: CALCIUM 8.9 mg/dL (8.5-10.1); CREATININE 0.7 mg/dL (0.6-1.3); MAGNESIUM 2.2 mg/dL (1.8-2.4); PHOSPHOROUS 4.2 mg/dL (2.5-4.9); POTASSIUM 4.7 mmol/L (3.5-5.1)
[2024-02-10] MEDS: FLUOXETINE HCL 20 MG CAPSULE PO SCH (08:52)
[2024-02-10] MEDS: MIRALAX 17 GM POWD.PACK PO SCH (08:53)
[2024-02-10] MEDS ORDERED: FAMOTIDINE 20 MG TABLET PO SCH (09:00)
[2024-02-10 12:00] VITALS: BP 183/64; TEMP 97.8; O2SAT 0
[2024-02-10 15:00] VITALS: BP 171/61; TEMP 98.3
[2024-02-10] MEDS ORDERED: VANCOMYCIN 1000 MG VIAL ONE (16:28)
[2024-02-10] MEDS ORDERED: POLYMYXIN B SULFATE 500,000 UNITS VIAL ONE (16:29)
[2024-02-10] MEDS ORDERED: BUPIVACAINE/EPI PF 0.25% 10 ML VIAL IJ ONE (16:29)
[2024-02-10] MEDS ORDERED: PROPOFOL 200 MG/20 ML BOTTLE ONE (17:00)
[2024-02-10] MEDS ORDERED: FENTANYL CITRATE 100 MCG/2 ML AMPUL ONE (17:24)
[2024-02-10] MEDS ORDERED: FAMOTIDINE. 20 MG/2 ML VIAL IV ONE (17:24)
[2024-02-10] MEDS ORDERED: TRANEXAMIC ACID 1,000 MG/10 ML VIAL ONE (17:24)
[2024-02-10] MEDS ORDERED: IV D5W-0.45% NS +20 KCL 1,000 ML IV ONE (18:31)
[2024-02-10] MEDS ORDERED: METOCLOPRAMIDE HCL 10 MG/2 ML VIAL ONE (18:35)
[2024-02-10] MEDS ORDERED: ONDANSETRON 4 MG/2 ML VIAL ONE (18:35)
[2024-02-10] MEDS ORDERED: HYDROCODONE/APAP 10-325 MG TABLET PO PRN (18:45)
[2024-02-10] MEDS ORDERED: HYDROMORPHONE 1 MG/1 ML DISP.SYRIN ONE (18:53)
[2024-02-10 20:11] VITALS: BP 124/33; TEMP 97.6
[2024-02-10] MEDS: IV D5W-0.45% NS +20 KCL 1,000 ML IV PRN (20:28)
[2024-02-10] MEDS: REMEDY ESSENTIAL ZINC PASTE 113 GM TP SCH (21:37)
[2024-02-11] MEDS: CEFAZOLIN 1 G in IV DEXTROSE 5% 50 ML IV SCH (01:52)
[2024-02-11 04:23] VITALS: O2SAT 96
[2024-02-11] MEDS: MORPHINE SULFATE 2 MG/1 ML DISP.SYRIN IV PRN (04:37)
[2024-02-11 04:42] VITALS: BP 158/68; TEMP 97.8; O2SAT 96
[2024-02-11] MEDS: ACETAMINOPHEN 325 MG TABLET PO PRN (06:38)
[2024-02-11 08:17] LABS: BASOPHILS % (AUTO) 0.3 % (0.0-2.0); HEMATOCRIT 34.5 % (31.2-41.9); HEMOGLOBIN 11.7 g/dL (10.9-14.3); LYMPHOCYTES # (AUTO) 0.9 K/uL (0.8-4.8); LYMPHOCYTES % (AUTO) 7.9 % (20.5-51.5); MEAN CORPUSCULAR HEMOGLOBIN 30.1 uug (24.7-32.8); MEAN CORPUSCULAR HGB CONC 34 g/dL (32.3-35.6); MONOCYTES # (AUTO) 1.2 K/uL (0.1-1.30); MONOCYTES % (AUTO) 10.8 % (0.0-11.0); NEUTROPHILS # (AUTO) 8.8 K/uL (1.8-8.9); PLATELET COUNT (AUTO) 287 K/uL (179-408); RED BLOOD CELL COUNT(AUTO) 3.88 MIL/uL (3.63-4.92); RED CELL DISTRIBUTION WIDTH 12.8 % (12.3-17.7); WHITE BLOOD COUNT (AUTO) 10.9 K/uL (3.8-11.8)
[2024-02-11 08:18] LABS: CALCIUM 8.6 mg/dL (8.5-10.1); CREATININE 0.7 mg/dL (0.6-1.3)
[2024-02-11 08:22] LABS: POTASSIUM 5.2 mmol/L (3.5-5.1)
[2024-02-11 08:26] LABS: DIFFERENTIAL COMMENT 1
[2024-02-11 11:11] VITALS: BP 125/46; TEMP 98.6; O2SAT 100
[2024-02-11 14:56] VITALS: BP 114/46; TEMP 98.2; O2SAT 97
[2024-02-11 20:00] VITALS: BP 143/52; TEMP 99.2; O2SAT 96
[2024-02-11] MEDS: MAGNESIUM HYDROXIDE 30 ML LIQUID UDC PO PRN (21:43)
[2024-02-11] MEDS: BENZOCAINE/MENTH/CETYLPYRD LOZENGE MM PRN (22:11)
[2024-02-12 04:00] VITALS: TEMP 99
[2024-02-12 06:00] VITALS: TEMP 98.9
[2024-02-12 08:12] LABS: CALCIUM 8.4 mg/dL (8.5-10.1); CREATININE 0.6 mg/dL (0.6-1.3); POTASSIUM 4.4 mmol/L (3.5-5.1)
[2024-02-12] MEDS ORDERED: ENOX40DI SQ (10:00)
[2024-02-12] MEDS: ENOXAPARIN SODIUM 40 MG/0.4 ML DISP.SYRIN SQ SCH (11:06)
[2024-02-12 12:00] VITALS: BP 114/49; TEMP 98.9; O2SAT 97
[2024-02-13] MEDS ORDERED: PANTOPRAZOLE SODIUM 40 MG TABLET.DR PO SCH (07:00)
== END 2024-02-12 13:07 | DRG 522 ==
LOC: ER 21:13 → MEDSURG3 02-09 03:50
PROVIDERS: ADMIT Nurse Practitioner Family; ATTEND Internal Medicine
PROC: 0SRR0JA Replacement of Right Hip Joint, Femoral Surface with Synthetic Substitute, Uncemented, Open Approach (ICD-10-PCS; principal; 2024-02-10)
DX: M84.451A Pathological fracture, right femur, initial encounter for fracture (principal); E44.0 Moderate protein-calorie malnutrition; F03.93 Unspecified dementia, unspecified severity, with mood disturbance; F25.0 Schizoaffective disorder, bipolar type; E88.09 Other disorders of plasma-protein metabolism, not elsewhere classified; M84.454D Pathological fracture, pelvis, subsequent encounter for fracture with routine healing; G47.00 Insomnia, unspecified; E78.5 Hyperlipidemia, unspecified; I73.9 Peripheral vascular disease, unspecified; J32.9 Chronic sinusitis, unspecified; K21.9 Gastro-esophageal reflux disease without esophagitis; R53.81 Other malaise; I10 Essential (primary) hypertension; F19.10 Other psychoactive substance abuse, uncomplicated
CPT/HCPCS: 36415; 71045; 72192; 73501; 83735; 84100; 84443; 84484; 85025; 85651; 85730; 86140; 93005; A4649; C1776; C9113; G0378; J0690; J1100; J1170; J1650; J2270; J2405; J2765; J3010; J3370; J3490; J7040

== ENCOUNTER 2024-08-15 22:08 | Inpatient (IN) | payer MEDICARE, OTHER ==
[~2024-08-15] VITALS: Ht 160 cm; Wt 64.9 kg
[~2024-08-15 22:08] MED LIST changes: +BISA-79 PO; +ENOX40DI SQ; +FAMO20TA8 PO; +FLUO20CA36 PO; +HYDR25TA86 PO; +MAG355OR18 PO; +MELA10TA2 PO; +MULT-1045 PO; -NA P133E RC; +RISP1TAB7 PO; +[UNRECOGNIZED DRUG - CODE] PO
[2024-08-15 22:39] LABS: BASOPHILS # (AUTO) 0.1 K/UL (0.0-0.2); BASOPHILS % (AUTO) 1.1 % (0.0-2.0); EOSINOPHILS # (AUTO) 0.3 K/uL (0.0-0.7); EOSINOPHILS % (AUTO) 3.1 % (0.0-7.0); HEMATOCRIT 37.9 % (31.2-41.9); HEMOGLOBIN 12.8 g/dL (10.9-14.3); LYMPHOCYTES # (AUTO) 1.9 K/uL (0.8-4.8); LYMPHOCYTES % (AUTO) 20.9 % (20.5-51.5); MEAN CORPUSCULAR HEMOGLOBIN 29.7 uug (24.7-32.8); MEAN CORPUSCULAR HGB CONC 34 g/dL (32.3-35.6); MEAN CORPUSCULAR VOLUME 88.1 fL (75.5-95.3); MONOCYTES # (AUTO) 0.8 K/uL (0.1-1.30); NEUTROPHILS # (AUTO) 5.8 K/uL (1.8-8.9); NEUTROPHILS % (AUTO) 65.9 % (38.5-71.5); PLATELET COUNT (AUTO) 342 K/uL (179-408); RED CELL DISTRIBUTION WIDTH 13.3 % (12.3-17.7); WHITE BLOOD COUNT (AUTO) 8.9 K/uL (3.8-11.8)
[2024-08-15 22:56] LABS: CALCIUM 9.4 mg/dL (8.5-10.1); CREATININE 0.6 mg/dL (0.6-1.3); POTASSIUM 4.6 mmol/L (3.5-5.1)
[2024-08-15] MEDS ORDERED: CEFTRIAXONE /D5W 50ML IVPB **ER PYXIS IV ONE (22:56)
[2024-08-15 23:01] LABS: ALBUMIN 3.4 g/dL (3.4-5.0); BILIRUBIN,TOTAL 0.4 mg/dL (0.2-1.0); TOTAL PROTEIN, SERUM 7.7 g/dL (6.4-8.2)
[2024-08-15] MEDS: CEFTRIAXONE 1 G in IV DEXTROSE 5% 50 ML IV ONE (23:09)
[2024-08-16] MEDS ORDERED: ONDANSETRON 4 MG/2 ML VIAL IV PRN (01:30)
[2024-08-16] MEDS ORDERED: ACETAMINOPHEN 325 MG TABLET PO PRN (01:30)
[2024-08-16] MEDS ORDERED: REMEDY ESSENTIAL ZINC PASTE 113 GM TP PRN (01:30)
[2024-08-16] MEDS ORDERED: CLONIDINE HCL 0.1 MG TABLET ONE (06:44)
[2024-08-16] MEDS: CLONIDINE HCL 0.1 MG TABLET PO ONE (06:49)
[2024-08-16 06:58] LABS: BASOPHILS # (AUTO) 0.1 K/UL (0.0-0.2); BASOPHILS % (AUTO) 1.5 % (0.0-2.0); EOSINOPHILS # (AUTO) 0.2 K/uL (0.0-0.7); EOSINOPHILS % (AUTO) 2.8 % (0.0-7.0); HEMATOCRIT 36.8 % (31.2-41.9); HEMOGLOBIN 12.5 g/dL (10.9-14.3); LYMPHOCYTES # (AUTO) 1.8 K/uL (0.8-4.8); LYMPHOCYTES % (AUTO) 21.6 % (20.5-51.5); MEAN CORPUSCULAR HEMOGLOBIN 29.8 uug (24.7-32.8); MEAN CORPUSCULAR HGB CONC 34 g/dL (32.3-35.6); MEAN CORPUSCULAR VOLUME 87.6 fL (75.5-95.3); MONOCYTES # (AUTO) 0.9 K/uL (0.1-1.30); MONOCYTES % (AUTO) 10.4 % (0.0-11.0); NEUTROPHILS # (AUTO) 5.3 K/uL (1.8-8.9); NEUTROPHILS % (AUTO) 63.7 % (38.5-71.5); PLATELET COUNT (AUTO) 328 K/uL (179-408); RED CELL DISTRIBUTION WIDTH 13.8 % (12.3-17.7); WHITE BLOOD COUNT (AUTO) 8.3 K/uL (3.8-11.8)
[2024-08-16 07:20] LABS: ALBUMIN 3.5 g/dL (3.4-5.0); BILIRUBIN,DIRECT 0.1 mg/dL (0.0-0.2); BILIRUBIN,TOTAL 0.7 mg/dL (0.2-1.0); CALCIUM 9.1 mg/dL (8.5-10.1); CREATININE 0.6 mg/dL (0.6-1.3); MAGNESIUM 2.2 mg/dL (1.8-2.4); PHOSPHOROUS 3.8 mg/dL (2.5-4.9); TOTAL PROTEIN, SERUM 7.6 g/dL (6.4-8.2)
[2024-08-16 07:32] LABS: POTASSIUM 4.6 mmol/L (3.5-5.1)
[2024-08-16 07:51] LABS: DIFFERENTIAL COMMENT 1
[2024-08-16 09:12] LABS: ERYTHROCYTE SEDIMENTATION RATE 57 MM/HR (0-20)
[2024-08-16 09:41] VITALS: TEMP 97.8
[2024-08-16] MEDS: CLINDAMYCIN PHOSPHATE IV 900 MG in IV DEXTROSE 5% 50 ML IV SCH (09:45)
[2024-08-16] MEDS: PANTOPRAZOLE SODIUM 40 MG TABLET.DR PO SCH (09:49)
[2024-08-16] MEDS ORDERED: BISACODYL 5 MG TABLET.DR PO PRN (11:15)
[2024-08-16] MEDS: DOCUSATE SODIUM 100 MG CAPSULE PO SCH (13:56)
[2024-08-16] MEDS ORDERED: IVER3TAB2 PO (14:04)
[2024-08-16 16:20] VITALS: BP 112/39; TEMP 98.7; O2SAT 94
[2024-08-16] MEDS ORDERED: risperiDONE 1 MG TABLET PO SCH (17:00)
[2024-08-16] MEDS: GUAIFENESIN/DEXTROMETHORPHAN 5 ML UDC PO PRN (17:25)
[2024-08-16 19:40] VITALS: BP 120/49; TEMP 99.1; O2SAT 93
[2024-08-16] MEDS: SENNOSIDES 1 TABLET PO SCH (20:21)
[2024-08-16] MEDS: ATORVASTATIN 40 MG TABLET PO SCH (20:21)
[2024-08-16] MEDS ORDERED: Medication Not On Formulary EA (Atorvastatin Calcium (Lipitor) 80 MG) PO SCH (21:00)
[2024-08-16] MEDS: CEFTRIAXONE 1 G in IV DEXTROSE 5% 50 ML IV SCH (23:34)
[2024-08-17 05:56] VITALS: BP 137/92; TEMP 98; O2SAT 91
[2024-08-17 06:31] LABS: CALCIUM 8.6 mg/dL (8.5-10.1); CREATININE 0.8 mg/dL (0.6-1.3); MAGNESIUM 2.1 mg/dL (1.8-2.4); PHOSPHOROUS 3.9 mg/dL (2.5-4.9); POTASSIUM 5.1 mmol/L (3.5-5.1)
[2024-08-17 06:34] LABS: BASOPHILS # (AUTO) 0.1 K/UL (0.0-0.2); EOSINOPHILS # (AUTO) 0.3 K/uL (0.0-0.7); HEMATOCRIT 33.7 % (31.2-41.9); HEMOGLOBIN 11.3 g/dL (10.9-14.3); LYMPHOCYTES # (AUTO) 2.2 K/uL (0.8-4.8); LYMPHOCYTES % (AUTO) 27.2 % (20.5-51.5); MEAN CORPUSCULAR HEMOGLOBIN 29.7 uug (24.7-32.8); MEAN CORPUSCULAR HGB CONC 34 g/dL (32.3-35.6); MEAN CORPUSCULAR VOLUME 88.1 fL (75.5-95.3); MONOCYTES # (AUTO) 0.8 K/uL (0.1-1.30); MONOCYTES % (AUTO) 10.2 % (0.0-11.0); NEUTROPHILS # (AUTO) 4.7 K/uL (1.8-8.9); NEUTROPHILS % (AUTO) 57.6 % (38.5-71.5); PLATELET COUNT (AUTO) 302 K/uL (179-408); RED BLOOD CELL COUNT(AUTO) 3.82 MIL/uL (3.63-4.92); RED CELL DISTRIBUTION WIDTH 13.6 % (12.3-17.7); WHITE BLOOD COUNT (AUTO) 8.1 K/uL (3.8-11.8)
[2024-08-17] MEDS: AMLODIPINE 5 MG TABLET PO SCH (09:48)
[2024-08-17] MEDS: ASPIRIN 81 MG TAB.CHEW PO SCH (09:48)
[2024-08-17] MEDS: FAMOTIDINE 20 MG TABLET PO SCH (09:49)
[2024-08-17] MEDS: ENOXAPARIN SODIUM 40 MG/0.4 ML DISP.SYRIN SQ SCH (09:50)
[2024-08-17] MEDS: MAGNESIUM HYDROXIDE 30 ML LIQUID UDC PO PRN (10:08)
[2024-08-17 11:58] VITALS: BP 129/89; TEMP 98.1; O2SAT 93
[2024-08-17 15:55] VITALS: BP 126/54; TEMP 97.9; O2SAT 97
[2024-08-17 19:00] VITALS: BP 116/48; TEMP 98.5; O2SAT 92
[2024-08-17] MEDS ORDERED: CEFTRIAXONE /D5W 50ML IVPB **ER PYXIS IV ONE (20:47)
[2024-08-18 06:00] VITALS: BP 157/63; TEMP 98.3; O2SAT 95
[2024-08-18] MEDS ORDERED: CLIN300C12 PO (10:22)
[2024-08-18 11:16] VITALS: BP 144/57; TEMP 98.2; O2SAT 94
[2024-08-18] MEDS: CLINDAMYCIN HCL 300 MG CAPSULE PO SCH (14:51)
[2024-08-18 15:06] VITALS: BP 130/66; TEMP 98.4; O2SAT 99
[2024-08-18 20:09] VITALS: BP 136/52; TEMP 98.4; O2SAT 95
[2024-08-19 06:44] VITALS: BP 180/63; TEMP 97.6; O2SAT 97
[2024-08-19] MEDS: CLONIDINE HCL 0.1 MG TABLET PO ONE (07:02)
[2024-08-19 11:29] VITALS: BP 125/49; TEMP 98; O2SAT 95
[2024-09-14] MEDS ORDERED: IVERMECTIN 3 MG TABLET PO SCH (09:00)
== END 2024-08-19 14:50 | DRG 602 ==
LOC: ER 22:10 → MEDSURG3 08-16 09:04
PROVIDERS: ADMIT Nurse Practitioner Family; ATTEND Internal Medicine
DX: L03.115 Cellulitis of right lower limb (principal); J18.9 Pneumonia, unspecified organism; F03.93 Unspecified dementia, unspecified severity, with mood disturbance; F25.9 Schizoaffective disorder, unspecified; F31.9 Bipolar disorder, unspecified; Z66 Do not resuscitate; Z79.899 Other long term (current) drug therapy; I10 Essential (primary) hypertension; Z86.16 Personal history of COVID-19; K21.9 Gastro-esophageal reflux disease without esophagitis
CPT/HCPCS: 36415; 71045; 73590; 83735; 84100; 85025; 85651; 87040; G0378; J0696; J1650; J3490